=== PATIENT | female | born 1975 | race Caucasian/White ===

== ENCOUNTER 2020-06-11 17:11 | Observation (INO) | payer SELFPAY ==
[2020-06-11] VITALS (7 sets, daily range): BP systolic 88–108; BP diastolic 56–78
[~2020-06-11] VITALS: Ht 160 cm; Wt 51.1 kg
[2020-06-11] MEDS ORDERED: ZIPRASIDONE INJECTION 10 MG in WATER (STERILE) FOR INJECTION 1.2 ML IM ONE (17:30)
[2020-06-11 17:42] LABS: BASOPHILS % (AUTO) 0 % (0-10); EOSINOPHILS # (AUTO) 0.1 10^3/uL (0.0-0.3); EOSINOPHILS % (AUTO) 1 % (0-10); HEMATOCRIT 40 % (35-52); HEMOGLOBIN 13.7 G/DL (11.5-16.0); LYMPHOCYTES # (AUTO) 2.6 X 10^3 (1.0-4.0); LYMPHOCYTES % (AUTO) 29 % (12-44); MEAN CORPUSCULAR HEMOGLOBIN 30 PG (25-34); MEAN CORPUSCULAR HGB CONC 34 G/DL (32-36); MEAN CORPUSCULAR VOLUME 86 FL (80-99); MEAN PLATELET VOLUME 10.7 FL (7.4-10.4); MONOCYTES # (AUTO) 0.6 X 10^3 (0.0-1.0); MONOCYTES % (AUTO) 7 % (0-12); NEUTROPHILS # (AUTO) 5.7 X 10^3 (1.8-7.8); NEUTROPHILS % (AUTO) 63 % (42-75); PLATELET COUNT 364 10^3/uL (130-400)
--- NOTE | 2020-06-11 17:49 | ED Psychosocial ---
General Chief Complaint: Substance Abuse Stated Complaint: OD Nursing Triage Note: PT TO ROOM 08 VIA EMS WITH C/O OD. 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 PT MAY HAVE TAKEN HEROINE, ADEROL, AND ALCOHOL FRESH FOODS TECHNICIAN. Source: EMS Exam Limitations: no limitations, clinical condition (JALEEL GARG MD) History of Present Illness Date Seen by Provider: Jun 11, 2020 Time Seen by Provider: 17:16 Initial Comments This 45-year-old woman presents to the emergency room via EMS due to overdose and combative behavior. Police were called by patient's significant other. She was belligerent and violent with police, requiring handcuffs. For her safety EMS administered 100 mg of ketamine IM. Patient reportedly used alcohol, marijuana, Adderall, and possibly heroin. EMS reports there was no evidence of Adderall ingestion such as a bottle or remaining pills. There is a limited history due to patient's mental state and lack of family contact information. Patient is rather sedated and not talking comprehensibly due to the Ketamine. (JALELE GARG MD) Allergies and Home Medications Allergies Coded Allergies: No Known Drug Allergies (Unverified , 06/11/20) Patient Home Medication List Home Medication List Reviewed: Yes (JALEEL GARG MD) Review of Systems Constitutional: see HPI EENTM: no symptoms reported Respiratory: no symptoms reported Cardiovascular: no symptoms reported Gastrointestinal: no symptoms reported Genitourinary: no symptoms reported : No Musculoskeletal: no symptoms reported Skin: other (minor abrasions on the wrist from handcuffs) Psychiatric/Neurological: See HPI (JALEEL GARG MD) Past Pipragw-Eirdpv-Wgqnnr Hx Past Med/Social Hx: Reviewed Nursing Past Med/Soc Hx (JALEEL GARG MD) Patient Social History Alcohol Use: Regular Use Recreational Drug Use: Yes Smoking Status: Current Everyday Smoker Type Used: Cigarettes 2nd Hand Smoke Exposure: Yes Recent Foreign Travel: No Contact w/Someone Who Travel: No Recent Infectious Disease Expo: No Physical Abuse: No Sexual Abuse: No Mistreated: No Fear: No (JALEEL GARG MD) Past Medical History Surgeries: No (history not available) Respiratory: No (history not available) Cardiac: No (history not available) Neurological: No (history not available) : No (history not available) Genitourinary: No (history not available) Gastrointestinal: No (history not available) Musculoskeletal: No (history not available) Endocrine: No (history not available) HEENT: No (history not available) Cancer: No (history not available) Psychosocial: No (history not available) (JALEEL GARG MD) Physical Exam Vital Signs - First Documented 06/11/20 17:17 Temp 36.4 Pulse 84 Resp 17 B/P (MAP) 126/80 (95) O2 Delivery Room Air (AKANKSHA,EMETERIO K DO) Capillary Refill : Less Than 3 Seconds (JALEEL GARG MD) Height, Weight, BMI Height: '" Weight: lbs. oz. 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 noted because of ketamine) HEENT: normal ENT inspection, other (thick secretions on mucous membranes) Neck: normal inspection Respiratory: lungs clear, normal breath sounds, no respiratory distress, no accessory muscle use Cardiovascular: regular rate, rhythm, no edema, no murmur Gastrointestinal: normal bowel sounds, soft; No distended Extremities: normal inspection, no pedal edema, other (minor abrasions on the left wrist due to handcuffs) Neurologic/Psychiatric: other (moves all 4 extremities, agitated but was 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 MACHINE OPERATOR depression from ketamine) Appearance/Memory: disheveled Behavior/Eye Contact: other (sluggish incomprehensible speech) Thoughts/Hallucinations: other (hallucinations were reported by EMS) Skin: normal color, warm/dry (JALEEL GARG MD) Progress/Results/Core Measures Results/Orders Lab Results Laboratory Tests Test 06/11/20 17:20 06/11/20 18:18 Range/Units White Blood Count 9.0 4.3-11.0 10^3/uL Red Blood Count 4.65 4.35-5.85 10^6/uL Hemoglobin 13.7 11.5-16.0 G/DL Hematocrit 40 35-52 % Mean Corpuscular Volume 86 80-99 FL Mean Corpuscular Hemoglobin 30 25-34 PG Mean Corpuscular Hemoglobin Concent 34 32-36 G/DL Red Cell Distribution Width 14.0 10.0-14.5 % Platelet Count 364 130-400 10^3/uL Mean Platelet Volume 10.7 H 7.4-10.4 FL Neutrophils (%) (Auto) 63 42-75 % Lymphocytes (%) (Auto) 29 12-44 % Monocytes (%) (Auto) 7 0-12 % Eosinophils (%) (Auto) 1 0-10 % Basophils (%) (Auto) 0 0-10 % Neutrophils # (Auto) 5.7 1.8-7.8 X 10^3 Lymphocytes # (Auto) 2.6 1.0-4.0 X 10^3 Monocytes # (Auto) 0.6 0.0-1.0 X 10^3 Eosinophils # (Auto) 0.1 0.0-0.3 10^3/uL Basophils # (Auto) 0.0 0.0-0.1 10^3/uL Sodium Level 136 135-145 MMOL/L Potassium Level 4.2 3.6-5.0 MMOL/L Chloride Level 104 98-107 MMOL/L Carbon Dioxide Level 19 L 21-32 MMOL/L Anion Gap 13 5-14 MMOL/L Blood Urea Nitrogen 8 7-18 MG/DL Creatinine 0.79 0.60-1.30 MG/DL Estimat Glomerular Filtration Rate > 60 BUN/Creatinine Ratio 10 Glucose Level 145 H 70-105 MG/DL Calcium Level 9.0 8.5-10.1 MG/DL Corrected Calcium 8.7 8.5-10.1 MG/DL Total Bilirubin 0.4 0.1-1.0 MG/DL Aspartate Amino Transf (AST/SGOT) 24 5-34 U/L Alanine Aminotransferase (ALT/SGPT) 10 0-55 U/L Alkaline Phosphatase 52 40-136 U/L Total Creatine Kinase 84 29-168 U/L Total Protein 8.3 H 6.4-8.2 GM/DL Albumin 4.4 3.2-4.5 GM/DL TSH [place] Testing 1.02 0.35-4.94 UIU/ML Serum Test, Qualitative NEGATIVE NEGATIVE Salicylates Level < 5.0 L 5.0-20.0 MG/DL Acetaminophen Level < 10 L 10-30 UG/ML Serum Alcohol 246 H <10 MG/DL Urine Color YELLOW Urine Clarity CLEAR Urine pH 6.0 5-9 Urine Specific Morris <=1.005 1.016-1.022 Urine Protein NEGATIVE NEGATIVE Urine Glucose (UA) NEGATIVE NEGATIVE Urine Ketones NEGATIVE NEGATIVE Urine Nitrite NEGATIVE NEGATIVE Urine Bilirubin NEGATIVE NEGATIVE Urine Urobilinogen 0.2 < = 1.0 MG/DL Urine Leukocyte Esterase NEGATIVE NEGATIVE Urine RBC (Auto) NEGATIVE NEGATIVE Urine RBC 0-2 /HPF Urine WBC NONE /HPF Urine Squamous Epithelial Cells 0-2 /HPF Urine Crystals NONE /LPF Urine Bacteria NEGATIVE /HPF Urine Casts NONE /LPF Urine Mucus NEGATIVE /LPF Urine Culture Indicated NO Urine Opiates Screen NEGATIVE NEGATIVE Urine Oxycodone Screen NEGATIVE NEGATIVE Urine Methadone Screen NEGATIVE NEGATIVE Urine Propoxyphene Screen NEGATIVE NEGATIVE Urine Barbiturates Screen NEGATIVE NEGATIVE Ur Tricyclic Antidepressants Screen NEGATIVE NEGATIVE Urine Phencyclidine Screen NEGATIVE NEGATIVE Urine Amphetamines Screen POSITIVE H NEGATIVE Urine Methamphetamines Screen NEGATIVE NEGATIVE Urine Benzodiazepines Screen NEGATIVE NEGATIVE Urine Cocaine Screen NEGATIVE NEGATIVE Urine Cannabinoids Screen POSITIVE H NEGATIVE (EMETERIO PEREZ DO) My Orders Orders - EMETERIO PEREZ DO Catheter(Urinary) Insert & Ass 0315 (06/11/20 17:57) Ed Iv/Invasive Line Start (06/11/20 17:57) Lactated Ringers (Lr 1000 Ml Iv Solution (06/11/20 17:57) Lorazepam Injection (Ativan Injection) (06/11/20 19:00) Diphenhydramine Injection (Benadryl Inje (06/11/20 19:00) Haloperidol Injection (Haldol Injectio (06/11/20 19:00) (EMETERIO PEREZ DO) Medications Given in ED Current Medications Medications Dose Ordered Sig/Hemalatha Route Start Time Stop Time Status Last Admin Dose Admin Lactated Ringer's 1,000 ml @ 0 mls/hr Q0M ONCE IV 06/11/20 17:57 06/11/20 17:58 DC 06/11/20 18:17 999 MLS/HR (EMETERIO PEREZ DO) Vital Signs/I&O 06/11/20 17:17 Temp 36.4 Pulse 84 Resp 17 B/P (MAP) 126/80 (95) O2 Delivery Room Air (EMETERIO PEREZ DO) Blood Pressure Mean: 95 Progress Progress Note : Time: 17:58 Progress Note Patient was seen and examined upon arrival. 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 No further medications were required to sedate her. A liter of IV fluid is running as initiated by EMS. She is now sleeping and labs are pending. Vital signs are stable and within normal limits. Care of this patient is going to be transitioned to Dr. Perez. His (JALEEL GARG MD) Progress Note : Progress Note 1809--PT WOKE AND BECAME VERY COMBATIVE ON TACTILE STIMULATION AND REQUIRED MULTIPLE STAFF TO RESTRAIN FOR CATHETER PLACEMENT--PT WITH INCOHERENT AND SLURRED SPEECH. PT QUICKLY BACK TO SLEEP AFTER CATHETER PLACED. 1854--PT NOW SUDDENLY AWAKE, AGITATED/HYSTERICAL, COMBATIVE, TRYING TO GET OUT OF BED, THRASHING ALL OVER, NON-SENSICAL SPEECH, UNABLE TO FOLLOW COMMANDS. GIVEN BENADRYL, HALDOL, ATIVAN WITH IMPROVEMENT. NO DETERIORATION IN PT'S CONDITION DURING ER STAY VITALS STABLE. (EMETERIO PEREZ DO) Initial ECG Impression Date: Jun 11, 2020 Initial ECG Impression Time: 19:09 Initial ECG Rate: 87 Initial ECG Rhythm: Normal Sinus Initial ECG Comparisson: No Previous ECG Available (EMETERIO PEREZ DO) Departure Communication (Admissions) 1842--SPOKE WITH DR. CUNNINGHAM, HOSPITALIST, ACCEPTS PT FOR ADMIT 1929--DR. CUNNINGHAM HER TO SEE PT (EMETERIO PEREZ DO) Impression Primary Impression: Agitation Additional Impressions: Polysubstance abuse Alcohol intoxication Psychosis Disposition: ADMITTED INPATIENT Condition: Stable Admissions Decision to Admit Reason: Admit from ER (General) Decision to Admit/Date: Jun 11, 2020 Time/Decision to Admit Time: 18:45 (EMETERIO PEREZ DO) Departure-Patient Inst. Referrals: UNKNOWN (PCP/Family) Primary Care Physician Patient Instructions: ALCOHOL AND SUBSTANCE ABUSE JALEEL GARG MD Jun 11, 2020 17:49 EMETERIO PEREZ DO Jun 11, 2020 18:07
[2020-06-11 17:55] LABS: CHLORIDE 104 MMOL/L (98-107); POTASSIUM 4.2 MMOL/L (3.6-5.0); SODIUM 136 MMOL/L (135-145)
[2020-06-11 17:56] LABS: ALBUMIN 4.4 GM/DL (3.2-4.5)
[2020-06-11] MEDS ORDERED: LACTATED RINGERS 1,000 ML IV ONE (17:57)
[2020-06-11 17:58] LABS: GLUCOSE 145 MG/DL (70-105)
[2020-06-11 17:59] LABS: CARBON DIOXIDE 19 MMOL/L (21-32); TOTAL PROTEIN 8.3 GM/DL (6.4-8.2)
[2020-06-11 18:00] LABS: BILIRUBIN,TOTAL 0.4 MG/DL (0.1-1.0)
[2020-06-11 18:02] LABS: ALKALINE PHOSPHATASE 52 U/L (40-136); CREATININE SERUM 0.79 MG/DL (0.60-1.30); GFR ESTIMATED > 60
[2020-06-11 18:03] LABS: BUN/CREATININE RATIO 10
[2020-06-11 18:05] LABS: ALANINE AMINOTRANSFERASE 10 U/L (0-55); CREATINE KINASE 84 U/L (29-168); SALICYLATE < 5.0 MG/DL (5.0-20.0)
[2020-06-11 18:21] LABS: ACETAMINOPHEN < 10 UG/ML (10-30)
[2020-06-11 18:23] LABS: BILIRUBIN,URINE NEGATIVE (NEGATIVE); CLARITY,URINE CLEAR; COLOR,URINE YELLOW; GLUCOSE, URINE (UA) NEGATIVE (NEGATIVE); KETONES,URINE NEGATIVE (NEGATIVE); LEUKOCYTE ESTERASE ,URINE NEGATIVE (NEGATIVE); NITRITE,URINE NEGATIVE (NEGATIVE); PROTEIN,URINE NEGATIVE (NEGATIVE)
[2020-06-11 18:25] LABS: TSH (THYROID ANALYZER) 1.02 UIU/ML (0.35-4.94)
[2020-06-11 18:31] LABS: BACTERIA,URINE NEGATIVE /HPF; RBC,URINE 0-2 /HPF; SQUAMOUS EPITHELIAL CELL,UR 0-2 /HPF
[2020-06-11 18:37] LABS: BENZODIAZEPINES SCREEN URINE NEGATIVE (NEGATIVE)
[2020-06-11 18:38] LABS: AMPHETAMINE SCREEN, URINE POSITIVE (NEGATIVE); BARBITURATE SCREEN URINE NEGATIVE (NEGATIVE); CANNABINOID SCREEN, URINE POSITIVE (NEGATIVE); COCAINE SCREEN URINE NEGATIVE (NEGATIVE); METHADONE STAT NEGATIVE (NEGATIVE); METHAMPHETAMINE SCREEN URINE S NEGATIVE (NEGATIVE); OPIATE SCREEN URINE NEGATIVE (NEGATIVE); OXYCODONE STAT NEGATIVE (NEGATIVE); PROPOXYPHENE STAT NEGATIVE (NEGATIVE); TRICYCLIC ANTIDEPRESSANTS SCRE NEGATIVE (NEGATIVE)
[2020-06-11] MEDS ORDERED: LORazepam INJ 2 MG/ML (ATIVAN) VIAL IVP ONE (19:00)
[2020-06-11] MEDS ORDERED: diphenhydrAMINE 50 MG/ML INJ (BENADRYL) IVP ONE (19:00)
[2020-06-11] MEDS ORDERED: HALOPERIDOL 5 MG/ML (HALDOL) VIAL IV ONE (19:00)
--- NOTE | 2020-06-11 19:46 | History & Physical-Hospitalist ---
History of Present Illness HPI/Chief Complaint Pt is a 45yoCF with a history of illicit drug use who presented to the ER via EMS due to psychosis. At the time of my exam she is quite sedated and only grimaces to loud noises and physicial stimuli. All history is obtained from that chart. Date Seen 06/11/20 Time Seen by a Provider: 19:45 Attending Physician PCP Unknown Referring Physician Date of Admission Home Medications & Allergies Home Medications Reviewed patient Home Medication Reconciliation performed by pharmacy medication reconciliations weight reducing technician and/or nursing. Patients Allergies have been reviewed. Allergies Allergies Coded Allergies No Known Drug Allergies (Unverified06/11/20) Past Jusnsnw-Tasmeh-Wwqzvb Hx Past Med/Social Hx: Reviewed Nursing Past Med/Soc Hx Patient Social History Alcohol Use: Regular Use Recreational Drug Use: Yes Smoking Status: Current Everyday Smoker Type Used: Cigarettes 2nd Hand Smoke Exposure: Yes Recent Foreign Travel: No Contact w/other who traveled: No Recent Infectious Disease Expo: No Past Medical History : No (history not available) Physical Exam Physical Exam Vital Signs Vital Signs - First Documented 06/11/20 06/11/20 17:17 20:19 Temp 36.4 Pulse 84 Resp 17 B/P (MAP) 126/80 (95) Pulse Ox 98 O2 Delivery Room Air Capillary Refill : Less Than 3 Seconds Height, Weight, BMI Height: '" Weight: lbs. oz. kg; 18.00 BMI Method: Results Results/Procedures Labs Laboratory Tests 06/12/20 02:50 Patient resulted labs reviewed. DALE CUNNINGHAM MD Jun 11, 2020 19:46
--- NOTE | 2020-06-11 20:07 | History & Physical-Hospitalist ---
History of Present Illness HPI/Chief Complaint Pt is a 45yoCF with a history of illicit drug use who presented to the ER via EMS due to psychosis. At the time of my exam she is quite sedated and only grimaces to loud noises and physical stimuli. All history is obtained from that chart. Apparently she was belligerent and violent with police and EMS was called. She was given mg IM Ketamine for sedation which was briefly successful at calming her. She reported using alcohol, THC, Adderall, and heroin. She briefly aroused in the ER but was very agitated and combative. She was given Haldol and Ativan in the ER. This was just prior to my exam accounting for her depressed mental state. Date Seen 06/11/20 Time Seen by a Provider: 20:01 Attending Physician Dale Oliveros MD PCP No,Local Physician Referring Physician Date of Admission Jun 11, 2020 at 18:45 Home Medications & Allergies Home Medications Reviewed patient Home Medication Reconciliation performed by pharmacy medication reconciliations pest technician and/or nursing. Patients Allergies have been reviewed. Allergies Allergies Coded Allergies No Known Drug Allergies (Unverified06/11/20) Past Mkumhbz-Vkzglf-Bnpnwz Hx Past Med/Social Hx: Reviewed Nursing Past Med/Soc Hx Patient Social History Alcohol Use: Regular Use Recreational Drug Use: Yes Smoking Status: Current Everyday Smoker Type Used: Cigarettes 2nd Hand Smoke Exposure: Yes Recent Foreign Travel: No Contact w/other who traveled: No Recent Infectious Disease Expo: No Past Medical History : No (history not available) Family History Reviewed Nursing Family Hx Unable to obtain history Review of Systems ROS-Unable to Obtain: sedated Constitutional: see HPI Physical Exam Physical Exam Vital Signs Vital Signs - First Documented 06/11/20 17:17 Temp 36.4 Pulse 84 Resp 17 B/P (MAP) 126/80 (95) O2 Delivery Room Air Capillary Refill : Less Than 3 Seconds Height, Weight, BMI Height: '" Weight: lbs. oz. kg; 18.00 BMI Method: General Appearance: Other (thin young female lying in ER gurney sleeping soundly, NAD) HEENT: Moist Mucous Membranes, Other (pinpoint pupils) Neck: Normal Inspection, Supple Respiratory: Lungs Clear, No Accessory Muscle Use, No Respiratory Distress Cardiovascular: Regular Rate, Rhythm, No Murmur Gastrointestinal: Normal Bowel Sounds, Non Tender, Soft Extremity: No Calf Tenderness, No Pedal Edema Neurologic/Psychiatric: Other (sleeping soundly, aroused to sternal rub but only with groaning then returned to sleep) Skin: Normal Color, Warm/Dry Results Results/Procedures Labs Laboratory Tests 06/11/20 17:20 Patient resulted labs reviewed. Assessment/Plan Admission Diagnosis Drug induced psychosis Admission Status: Observation Assessment and Plan Drug induced psychosis Alcohol intoxication Illicit drug use UDS consistent with THC and amphetamine use - No adderall rx in refill history Admit for observation due to sedation Will discuss drug use when more alert [facility] protocol Hyperglycemia Trend DVT ppx: Lovenox Diagnosis/Problems Diagnosis/Problems (1) Hyperglycemia Status: Acute (2) Polysubstance abuse Status: Acute (3) Agitation Status: Acute (4) Psychosis Status: Acute (5) Alcohol intoxication Status: Acute DALE OLIVEROS MD Jun 11, 2020 20:07
[2020-06-11] MEDS ORDERED: D5 1/2 NS W/KCL 20 MEQ/L 1,000 ML IV ONE (20:28)
--- NOTE | 2020-06-11 20:34 | NUR ---
PT ADMITTED TO ICU AT THIS TIME. PT UNABLE TO ANSWER ADMISSION QUESTIONS APPROPRIATELY. ADMISSION QUESTIONS ANSWERED TO THE BEST OF THIS RNS ABILITIES. THIS RN UNABLE TO GET EMERGENCY CONTACT INFORMATION OR SET UP A PASSWORD AT THIS TIME. WILL TRY AGAIN WHEN PT IS MORE ALERT.
[2020-06-11] MEDS ORDERED: ENOXAPARIN 40 MG/0.4 ML (LOVENOX) SYR ONE (21:30)
[2020-06-11] MEDS ORDERED: ENOXAPARIN 40 MG/0.4 ML (LOVENOX) SYR SC SCH (21:30)
[2020-06-11 21:33] LABS: INR 1.1 (0.8-1.4); PROTHROMBIN TIME PATIENT 14.5 SEC (12.2-14.7)
[2020-06-11] MEDS ORDERED: 1/2 NS IV SOLUTION 1,000 ML IV PRN (22:19)
[2020-06-11] MEDS ORDERED: D5 1/2 NS 1000 ML IV SOLUTION 1,000 ML IV PRN (22:30)
[2020-06-11] MEDS ORDERED: ONDANSETRON 4 MG (ZOFRAN) ORAL DISSOLVE TAB SL PRN (22:30)
[2020-06-11] MEDS ORDERED: SENNA W/DOCUSATE (SENOKOT S) TABLET PO PRN (22:30)
[2020-06-11] MEDS ORDERED: ANTACID SUSP 30 ML UDC (MYLANTA) PO PRN (22:30)
[2020-06-11] MEDS ORDERED: ONDANSETRON 4 MG/2 ML (SDV) Z0FRAN IV PRN (22:30)
[2020-06-11] MEDS ORDERED: LORazepam 1 MG (ATIVAN) TAB PO PRN (22:30)
[2020-06-11] MEDS ORDERED: LORazepam INJ 2 MG/ML (ATIVAN) VIAL IV PRN (22:30)
[2020-06-11] MEDS ORDERED: LORazepam INJ 2 MG/ML (ATIVAN) VIAL IM/IV PRN (22:30)
[2020-06-11] MEDS: D5 1/2 NS W/KCL 20 MEQ/L 1,000 ML IV SCH (22:34)
[2020-06-12] VITALS (16 sets, daily range): BP systolic 95–125; BP diastolic 65–84
[2020-06-12] MEDS: D5 1/2 NS W/KCL 20 MEQ/L 1,000 ML IV SCH ×2 (02:51→09:39)
[2020-06-12 04:06] LABS: BASOPHILS % (AUTO) 0 % (0-10); EOSINOPHILS # (AUTO) 0.1 10^3/uL (0.0-0.3); EOSINOPHILS % (AUTO) 2 % (0-10); HEMATOCRIT 34 % (35-52); HEMOGLOBIN 11.5 G/DL (11.5-16.0); LYMPHOCYTES # (AUTO) 2.4 X 10^3 (1.0-4.0); LYMPHOCYTES % (AUTO) 41 % (12-44); MEAN CORPUSCULAR HEMOGLOBIN 30 PG (25-34); MEAN CORPUSCULAR HGB CONC 34 G/DL (32-36); MEAN CORPUSCULAR VOLUME 87 FL (80-99); MEAN PLATELET VOLUME 10.9 FL (7.4-10.4); MONOCYTES # (AUTO) 0.6 X 10^3 (0.0-1.0); MONOCYTES % (AUTO) 11 % (0-12); NEUTROPHILS # (AUTO) 2.7 X 10^3 (1.8-7.8); NEUTROPHILS % (AUTO) 46 % (42-75); PLATELET COUNT 265 10^3/uL (130-400); WHITE BLOOD COUNT 5.9 10^3/uL (4.3-11.0)
[2020-06-12 04:19] LABS: ALBUMIN 3.4 GM/DL (3.2-4.5); CHLORIDE 110 MMOL/L (98-107); POTASSIUM 3.8 MMOL/L (3.6-5.0); SODIUM 140 MMOL/L (135-145)
[2020-06-12 04:21] LABS: CALCIUM 7.8 MG/DL (8.5-10.1)
[2020-06-12 04:22] LABS: GLUCOSE 94 MG/DL (70-105); TOTAL PROTEIN 5.9 GM/DL (6.4-8.2)
[2020-06-12 04:23] LABS: CARBON DIOXIDE 21 MMOL/L (21-32)
[2020-06-12 04:24] LABS: BILIRUBIN,TOTAL 0.4 MG/DL (0.1-1.0)
[2020-06-12 04:25] LABS: ALKALINE PHOSPHATASE 40 U/L (40-136); PHOSPHORUS 2.5 MG/DL (2.3-4.7)
[2020-06-12 04:26] LABS: CREATININE SERUM 0.61 MG/DL (0.60-1.30); GFR ESTIMATED > 60
[2020-06-12 04:27] LABS: BUN/CREATININE RATIO 11
[2020-06-12 04:28] LABS: ALANINE AMINOTRANSFERASE 8 U/L (0-55); MAGNESIUM 1.7 MG/DL (1.6-2.4)
[2020-06-12] MEDS: LORazepam INJ 2 MG/ML (ATIVAN) VIAL IV PRN ×2 (09:39→10:46)
--- NOTE | 2020-06-12 09:47 | Discharge Inst-Simple/Standard ---
Discharge Inst-Standard Discharge Medications New, Converted or Re-Newed RX: Transmitted to Pharmacy Patient Instructions/Follow Up Plan of Care/Instructions/FU: Please stop using methamphetamine. Please follow up with your primary care doctor to follow up with your hospital stay. Activity as Tolerated: Yes Discharge Diet: No Restrictions Return to The Hospital For: Chest pain, shortness of breath, confusion, fever, abdominal pain, if you feel like you are getting worse. DALE CUNNINGHAM MD Jun 12, 2020 09:47
--- NOTE | 2020-06-12 09:51 | Discharge Summary ---
Diagnosis/Chief Complaint Date of Admission Jun 11, 2020 at 18:45 Date of Discharge Discharge Date: Jun 12, 2020 Admission Diagnosis Drug induced psychosis Primary Care No,Local Physician Discharge Diagnosis (1) Hyperglycemia Status: Acute (2) Polysubstance abuse Status: Acute (3) Agitation Status: Acute (4) Psychosis Status: Acute (5) Alcohol intoxication Status: Acute Discharge Summary Discharge Physical Exam Allergies: Coded Allergies: No Known Drug Allergies (Unverified , 06/11/20) Vitals & I&Os Vital Signs Date Time Temp Pulse Resp B/P (MAP) Pulse Ox O2 Delivery O2 Flow Rate FiO2 06/12/20 14:00 66 13 118/78 (91) 98 Room Air 06/12/20 12:03 36.5 General Appearance: No Apparent Distress, WD/WN Cardiovascular: Regular Rate, Rhythm, No Murmur Neurologic/Psychiatric: Alert, Oriented x3 Hospital Course Pt was admitted due to acute psychosis from illicit drug use. She was observed overnight and did well. She woke up in the morning and was oriented to person and place but did not recall last evenings events. She was discharged home in stable condition to follow up with a primary care doctor. Cessation of illicit drug use was recommended. Labs (last 24 hrs) Laboratory Tests 06/11/20 21:04: Prothrombin Time 14.5, INR Comment 1.1, Activated Partial Thromboplast Time 29 06/12/20 02:50: White Blood Count 5.9, Red Blood Count 3.89L, Hemoglobin 11.5, Hematocrit 34L, Mean Corpuscular Volume 87, Mean Corpuscular Hemoglobin 30, Mean Corpuscular Hemoglobin Concent 34, Red Cell Distribution Width 13.9, Platelet Count 265, Mean Platelet Volume 10.9H, Neutrophils (%) (Auto) 46, Lymphocytes (%) (Auto) 41, Monocytes (%) (Auto) 11, Eosinophils (%) (Auto) 2, Basophils (%) (Auto) 0, Neutrophils # (Auto) 2.7, Lymphocytes # (Auto) 2.4, Monocytes # (Auto) 0.6, Eosinophils # (Auto) 0.1, Basophils # (Auto) 0.0, Sodium Level 140, Potassium L evel 3.8, Chloride Level 110H, Carbon Dioxide Level 21, Anion Gap 9, Blood Urea Nitrogen 7, Creatinine 0.61, Estimat Glomerular Filtration Rate > 60, BUN/Creatinine Ratio 11, Glucose Level 94, Calcium Level 7.8L, Corrected Calcium 8.3L, Phosphorus Level 2.5, Magnesium Level 1.7, Total Bilirubin 0.4, Aspartate Amino Transf (AST/SGOT) 13, Alanine Aminotransferase (ALT/SGPT) 8, Alkaline Phosphatase 40, Total Protein 5.9L, Albumin 3.4 Patient resulted labs reviewed. Pending Labs Discussion & Recommendations Discharge Planning: <30 minutes discharge planning Discharge Home Medications: Active Scripts Active No Active Prescriptions or Reported Medications Instructions to patient/family Please see electronic discharge instructions given to patient. Clinical Quality Measures DVT/VTE Risk/Contraindication: Risk Factor Score Per Nursin RFS Level Per Nursing on Admit: 4+=Very High DALE CUNNINGHAM MD Jun 12, 2020 09:51
[2020-06-12] MEDS ORDERED: THIAMINE INJECTION 100 MG, FOLIC ACID INJECTION 1 MG, MAGNESIUM SULFATE 2 GM, VITAMIN M... IV SCH ×5 (10:00)
[2020-06-12] MEDS ORDERED: THIAMINE INJECTION 100 MG, FOLIC ACID INJECTION 1 MG, VITAMIN MULTI INJECTION 10 ML, MA... IV SCH ×5 (10:00)
--- NOTE | 2020-06-12 15:09 | NUR ---
PT WANTS TO D/C TODAY JOSÉ. D/C PAPERWORK SIGNED BY PT AND RN. PT TRYING TO GET A HOLD OF FRIEND TO COME GET HER. IV AND APPIAH CATH HAVE BEEN DISCONTINUED. SHE IS LAYING IN BED AT THIS TIME. RN WILL CONTINUE TO MONITOR CLOSELY AND ASSIST WITH D/C
--- NOTE | 2020-06-12 16:21 | NUR ---
THIS RN DISCHARGED PT BY W/C TO ER DOOR WHERE A MAN WAS THERE TO PICK HER UP IN PERSONAL VEHICLE
[2020-06-12] MEDS ORDERED: ENOXAPARIN 30 MG/0.3 ML (LOVENOX) SYR SC SCH (21:00)
== END 2020-06-12 16:00 | disposition home or self-care (01) ==
LOC: ER 17:16 → ICU 18:45
PROVIDERS: ADMIT Family Medicine; ATTEND Family Medicine
DX: F23 Brief psychotic disorder (principal); E72.51 Non-ketotic hyperglycinemia; F19.129 Other psychoactive substance abuse with intoxication, unspecified; F10.129 Alcohol abuse with intoxication, unspecified; R45.1 Restlessness and agitation; F17.210 Nicotine dependence, cigarettes, uncomplicated; Z79.899 Other long term (current) drug therapy
CPT/HCPCS: 80053 ×2; 80306; 81000; 82550; 83735; 84100; 84443; 84703; 85025 ×2; 85610; 85730; 87081; 93041; 99285; G0480 ×3; 36415; 80320; 80329; 93005; G0378

== ENCOUNTER 2020-06-24 18:30 | Inpatient (IN) | payer OTHER ==
[~2020-06-24] VITALS: Ht 167.6 cm; Wt 55.0 kg
[2020-06-24] VITALS (13 sets, daily range): BP systolic 0–99; BP diastolic 0–80
[2020-06-24] MEDS ORDERED: 1/2 NS IV SOLUTION 1,000 ML IV PRN (18:42)
[2020-06-24] MEDS ORDERED: SENNA W/DOCUSATE (SENOKOT S) TABLET PO PRN (18:45)
[2020-06-24] MEDS ORDERED: D5 1/2 NS 1000 ML IV SOLUTION 1,000 ML IV PRN (18:45)
[2020-06-24] MEDS ORDERED: ANTACID SUSP 30 ML UDC (MYLANTA) PO PRN (18:45)
[2020-06-24] MEDS ORDERED: polyethylene glycoL POWDER 17 GM (MIRALAX) PACK PO PRN (18:45)
[2020-06-24] MEDS ORDERED: LORazepam INJ 2 MG/ML (ATIVAN) VIAL IM/IV PRN (18:45)
[2020-06-24] MEDS ORDERED: ONDANSETRON 4 MG (ZOFRAN) ORAL DISSOLVE TAB SL PRN (18:45)
[2020-06-24] MEDS ORDERED: LORazepam INJ 2 MG/ML (ATIVAN) VIAL IV PRN (18:45)
[2020-06-24] MEDS ORDERED: diphenhydrAMINE 25 MG TAB (BENADRYL) PO PRN (18:45)
--- NOTE | 2020-06-24 20:49 | NUR ---
EMILY MORALES admitted to room 414-1, with an admitting diagnosis of Alcohol withdrawl, on 06/24/20 from via strethcer, accompanied by EMS.EMILY MORALES introduced to surroundings, call light, bed controls, phone, TV, temperature control, lights, meal times, smoking policy, visitor policy, side rail policy, bathrooms and showers. Patient Rights given to patient in the handbook.
--- NOTE | 2020-06-24 20:52 | NUR ---
This RN assumed care for this patient as a direct admit at 2019. PT was introduced to surroundings and staff for the night. Pt is Pulling at IV line, crying, yelling for her mother, repeating she wants a drink of alcohol, and is only alert to name and touch. Otherwise, pt is unable to state where she's currentley at and i sincomprehensible at this time. PT's bed alarm set, call light within reach, and pt is in a room right near the nursing station. Bed is at lowest level possible, and side rails are padded and up X4. Will continue to monior pt status and provide care as ordered.
--- NOTE | 2020-06-24 21:27 | NUR ---
This RN called [employer] monitoring at 2100 and gave report to monitoring system via telephone to watch this pt for getting out of bed/fall risk, suicidal ideation, and alcohol withdrawl/seizure precautions. [employer] was set up and monitoring effectiveley. Will continue to monitor pt's status and [employer] has this RN's phone number to contact for any video monitoring needs.
[2020-06-24] MEDS: MELATONIN 3 MG TABLET PO PRN (23:42)
[2020-06-24] MEDS: ONDANSETRON 4 MG/2 ML (SDV) Z0FRAN IV PRN (23:48)
[2020-06-25] VITALS (7 sets, daily range): BP systolic 90–121; BP diastolic 60–78
[2020-06-25] MEDS: LORazepam 1 MG (ATIVAN) TAB PO PRN
[2020-06-25] MEDS: ACETAMINOPHEN 325 MG TABLET PO PRN ×3 (03:00→20:26)
[2020-06-25] MEDS ORDERED: PIPERACILLIN/TAZO 4.5 GM VIAL (ZOSYN) IV ONE (06:18)
[2020-06-25] MEDS: THIAMINE 100 MG (VITAMIN B-1) TAB PO SCH (06:18)
[2020-06-25] MEDS: MULTIVIT W/MINERALS TAB (THERAGRAN M) PO SCH (06:18)
[2020-06-25] MEDS: ONDANSETRON 4 MG/2 ML (SDV) Z0FRAN IV PRN (06:53)
[2020-06-25 07:19] LABS: BASOPHILS % (AUTO) 1 % (0-10); EOSINOPHILS # (AUTO) 0.1 10^3/uL (0.0-0.3); EOSINOPHILS % (AUTO) 2 % (0-10); HEMATOCRIT 33 % (35-52); HEMOGLOBIN 10.9 G/DL (11.5-16.0); LYMPHOCYTES % (AUTO) 37 % (12-44); MEAN CORPUSCULAR HEMOGLOBIN 30 PG (25-34); MEAN CORPUSCULAR HGB CONC 33 G/DL (32-36); MEAN CORPUSCULAR VOLUME 89 FL (80-99); MEAN PLATELET VOLUME 10.4 FL (7.4-10.4); MONOCYTES # (AUTO) 0.5 X 10^3 (0.0-1.0); MONOCYTES % (AUTO) 9 % (0-12); NEUTROPHILS # (AUTO) 2.8 X 10^3 (1.8-7.8); NEUTROPHILS % (AUTO) 52 % (42-75); PLATELET COUNT 257 10^3/uL (130-400); WHITE BLOOD COUNT 5.5 10^3/uL (4.3-11.0)
[2020-06-25 07:34] LABS: CHLORIDE 109 MMOL/L (98-107); POTASSIUM 4.1 MMOL/L (3.6-5.0); SODIUM 138 MMOL/L (135-145)
[2020-06-25 07:35] LABS: CALCIUM 7.8 MG/DL (8.5-10.1); GLUCOSE 93 MG/DL (70-105)
[2020-06-25 07:37] LABS: CARBON DIOXIDE 23 MMOL/L (21-32)
[2020-06-25 07:39] LABS: CREATININE SERUM 0.67 MG/DL (0.60-1.30); GFR ESTIMATED > 60; PHOSPHORUS 2.8 MG/DL (2.3-4.7)
[2020-06-25 07:40] LABS: BUN/CREATININE RATIO 13
[2020-06-25 07:42] LABS: MAGNESIUM 1.8 MG/DL (1.6-2.4)
[2020-06-25] MEDS: MAGNESIUM 1 GM/100 ML IVPB 100 ML IV SCH (08:18)
[2020-06-25] MEDS: POTASSIUM CL 10MEQ/50ML IVPB 50 ML IV SCH (08:18)
[2020-06-25] MEDS: FOLIC ACID 1 MG TAB PO SCH (08:19)
[2020-06-25] MEDS: MAGNESIUM OXIDE (MAG-OX)400 MG TAB PO SCH ×2 (08:19→17:05)
[2020-06-25] MEDS: KCL 20 MEQ TAB (K-DUR) PO SCH (08:19)
[2020-06-25] MEDS: THIAMINE INJECTION 100 MG, FOLIC ACID INJECTION 1 MG, MAGNESIUM SULFATE 2 GM, VITAMIN M... IV SCH ×15 (08:19→22:34)
[2020-06-25] MEDS: ENOXAPARIN 40 MG/0.4 ML (LOVENOX) SYR SC SCH (09:34)
--- NOTE | 2020-06-25 10:12 | NUR ---
CM/SS visited with the patient for social service consult. Plan[facility]. The patient reports that she was admitted to the hospital due to consumption of a high level of alcohol. She states that she has been admitted to the hospital x3 for alcohol use. The patient verbalized that it is starting to worry her because over the last two months her drinking has became more frequent. The patient reports that she does not drink everyday and she does not have a drink of choice. She states that she drank a 5th yesterday. The patient lives with her 25 year old daughter in [place], [place] the address is, [address] [place] [address]. She states that she does not have a car but has someone who will drive her if she needs to go somewhere. The patient is unemployed and and not receiving any assistance. She reports that she has [employer] insurance from [place] but has not gotten a new insurance yet. CODI/SS discussed different options for substance use treatment. She reports that in the past, she was able to detox at home and then do AA meetings. She reports that she hasn't seen any AA meetings in this area currently. CODI/SS discussed online AA meetings through [place]. The patient was provided information on [facility], [facility]/ [facility], and [facility] intensive Outpatient. She verbalized interest in [facility]. The patient asked about residential housing for recovering substance users. The [facility] in [place] is men only. The [facility] reports they have beds open and female houses. She states the patient will need a Covid negative test, an interview, and 100 dollar processing fee. CM/SS provided the patient will the information and number to call for interview. CM/SS notified physician. CM/SS will continue to follow.
[2020-06-25] MEDS ORDERED: MULT-1136 PO (11:41)
[2020-06-25] MEDS ORDERED: ACET-2267 PO (11:41)
[2020-06-25] MEDS ORDERED: BUPR8TAB SL ×2 (12:31)
--- NOTE | 2020-06-25 12:31 | NUR ---
SPOKE WITH THE PT AND CALLED [facility] TO COMPLETE THE MED REC [facility] HAS PT [facility]ISTED UNDER [facility] 06-07-2020 BUPRENORPHINE 8MG (SUBUTEX) #8 DIRECTIONS 1 TAB AM AND PM AND TAB HS OTC MEDS: MTV TYLENOL
--- NOTE | 2020-06-25 13:36 | History & Physical-Hospitalist ---
History of Present Illness HPI/Chief Complaint Mi Richey is a 45-year-old female with history of alcohol dependence who presented with acute alcohol intoxication monitoring for alcohol withdrawal. She initially presented to the [place] emergency room. She requested transfer to [facility]. Upon my examination, she says that she is feeling well. She wants to quit drinking alcohol. She did denies any nausea or vomiting. She denies any shakiness. She has no other complaints or concerns. 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 Source: patient Exam Limitations: no limitations Date Seen 06/25/20 Time Seen by a Provider: 10:00 Attending Physician Lyndsey Macedo MD PCP No,Local Physician Referring Physician Date of Admission Jun 24, 2020 at 20:19 Home Medications & Allergies Home Medications Reviewed patient Home Medication Reconciliation performed by pharmacy medication reconciliations broadcast maintenance technician and/or nursing. Patients Allergies have been reviewed. Allergies Allergies Coded Allergies Sulfa (Sulfonamide Antibiotics) (Verified Allergy, Unknown, Headache, 06/24/20) per discharge summary [facility] ketorolac (Verified Allergy, Unknown, shortnness of Breath/Wheezing, 06/24/20) per discharge summary [facility] metoclopramide (Verified Allergy, Unknown, makes legs feel like they are crawling, 06/24/20) per discharge summary [facility] prochlorperazine (Verified Allergy, Unknown, Makes legs feel like they are crawling, 06/24/20) per discharge summary [facility] clarithromycin (Verified Adverse Reaction, Intermediate, stomach pain, 06/24/20) per discharge summary [facility] Past Proipmp-Fzxkgi-Plbtyq Hx Past Med/Social Hx: Reviewed Nursing Past Med/Soc Hx Patient Social History Type Used: Cigarettes 2nd Hand Smoke Exposure: Yes Recent Foreign Travel: No Contact w/other who traveled: No Recent Infectious Disease Expo: No Family History Unable to obtain history Review of Systems Constitutional: no symptoms reported EENTM: no symptoms reported Respiratory: no symptoms reported Cardiovascular: no symptoms reported Gastrointestinal: no symptoms reported Genitourinary: no symptoms reported Musculoskeletal: no symptoms reported Skin: no symptoms reported Psychiatric/Neurological: No Symptoms Reported Physical Exam Physical Exam Vital Signs Vital Signs - First Documented 06/24/20 20:19 Temp 36.2 Pulse 76 Resp 19 B/P (MAP) 92/58 (69) Pulse Ox 98 O2 Delivery Room Air Capillary Refill : Less Than 3 Seconds Height, Weight, BMI Height: '" Weight: lbs. oz. kg; 19.58 BMI Method: General Appearance: No Apparent Distress, Thin HEENT: PERRL/EOMI, Pharynx Normal Neck: Normal Inspection, Supple Respiratory: Lungs Clear, Normal Breath Sounds, No Respiratory Distress Cardiovascular: Regular Rate, Rhythm, No Edema, No Murmur Gastrointestinal: Normal Bowel Sounds, Non Tender, Soft Extremity: Normal Inspection, Non Tender, No Pedal Edema Neurologic/Psychiatric: Alert, Oriented x3, No Motor/Sensory Deficits, Normal Mood/Affect Skin: Normal Color, Warm/Dry Results Results/Procedures Labs Laboratory Tests 06/25/20 07:10 Patient resulted labs reviewed. Assessment/Plan Admission Diagnosis alcohol dependence with intoxication and withdrawal Admission Status: Inpatient Order (span 2 midnights) Reason for Inpatient Admission: monitoring for alcohol withdrawal Assessment and Plan EtOH dependence EtOH intoxication EtOH withdrawal transferred from [facility] for alcohol withdrawal alcohol level 190 CIWA protocol ordered Banana bag Vitamins daily social work consulted, appreciate assistance planning for discharge to [facility] in [place] pending negative COVID test DVT prophylaxis: Lovenox Diagnosis/Problems Diagnosis/Problems (1) Alcohol dependence with withdrawal Status: Acute (2) Alcohol intoxication Status: Acute Clinical Quality Measures DVT/VTE Risk/Contraindication: Risk Factor Score Per Nursin RFS Level Per Nursing on Admit: 1=Low/No VTE PPX LYNDSEY MACEDO MD Jun 25, 2020 13:36
--- NOTE | 2020-06-25 14:12 | NUR ---
BANANA BAG DAILY NOT TO BE CONTINUE ORDERED.
--- NOTE | 2020-06-25 14:42 | NUR ---
covid-199 test obtained by this RN, right nare used to obtain this test.
[2020-06-25] MEDS: NON-FORMULARY MEDICATION 1 EA EA (Buprenorphine HCl 8 MG) SL SCH (20:26)
[2020-06-25] MEDS: MELATONIN 3 MG TABLET PO PRN (20:26)
[2020-06-25] MEDS ORDERED: BUPRENORPHINE HCL 4 MG SL SCH (21:00)
[2020-06-26] MEDS: LORazepam 1 MG (ATIVAN) TAB PO PRN ×3 (03:36→16:22)
[2020-06-26 03:38] VITALS: BP 118/78
[2020-06-26] MEDS: THIAMINE 100 MG (VITAMIN B-1) TAB PO SCH (06:00)
[2020-06-26] MEDS: MULTIVIT W/MINERALS TAB (THERAGRAN M) PO SCH (06:00)
[2020-06-26 07:31] LABS: ALBUMIN 3.3 GM/DL (3.2-4.5); CHLORIDE 108 MMOL/L (98-107); POTASSIUM 4.2 MMOL/L (3.6-5.0); SODIUM 137 MMOL/L (135-145)
[2020-06-26 07:32] LABS: CALCIUM 7.9 MG/DL (8.5-10.1)
[2020-06-26 07:33] LABS: GLUCOSE 92 MG/DL (70-105)
[2020-06-26 07:34] LABS: TOTAL PROTEIN 5.5 GM/DL (6.4-8.2)
[2020-06-26 07:35] LABS: BILIRUBIN,TOTAL 0.5 MG/DL (0.1-1.0); CARBON DIOXIDE 23 MMOL/L (21-32)
[2020-06-26 07:37] LABS: ALKALINE PHOSPHATASE 34 U/L (40-136); CREATININE SERUM 0.66 MG/DL (0.60-1.30); GFR ESTIMATED > 60
[2020-06-26 07:38] LABS: BUN/CREATININE RATIO 12
[2020-06-26 07:40] LABS: ALANINE AMINOTRANSFERASE 9 U/L (0-55)
[2020-06-26] MEDS: KCL 20 MEQ TAB (K-DUR) PO SCH (07:53)
[2020-06-26] MEDS: POTASSIUM CL 10MEQ/50ML IVPB 50 ML IV SCH (07:53)
[2020-06-26] MEDS: MAGNESIUM 1 GM/100 ML IVPB 100 ML IV SCH (07:53)
[2020-06-26 08:00] VITALS: BP 118/76
[2020-06-26] MEDS: ACETAMINOPHEN 325 MG TABLET PO PRN (09:20)
[2020-06-26] MEDS: FOLIC ACID 1 MG TAB PO SCH (09:20)
[2020-06-26] MEDS: ENOXAPARIN 40 MG/0.4 ML (LOVENOX) SYR SC SCH (09:20)
[2020-06-26] MEDS: MAGNESIUM OXIDE (MAG-OX)400 MG TAB PO SCH (09:20)
[2020-06-26] MEDS: NON-FORMULARY MEDICATION 1 EA EA (Buprenorphine HCl 8 MG) SL SCH (09:21)
[2020-06-26 12:00] VITALS: BP 102/61
[2020-06-26 16:00] VITALS: BP 116/79
[2020-06-26 16:52] VITALS: BP 118/76
--- NOTE | 2020-06-26 16:56 | Discharge Summary ---
Discharge Summary Hospital Course Was the Problem List Reviewed?: Yes Problems/Dx: (1) Alcohol dependence with withdrawal Status: Acute (2) Alcohol intoxication Status: Acute Hospital Course Date of Admission: Jun 24, 2020 at 20:19 Admission Diagnosis : alcohol dependence with withdrawal Family Physician/Provider: Pauline,Local Physician Date of Discharge: 06/26/20 Discharge Diagnosis: alcohol dependence with withdrawal Hospital Course: Mi Richey is a 45-year-old female with history of alcohol dependence who presented with acute alcohol intoxication and was monitored for alcohol withdrawal. She was treated with the alcohol withdrawal protocol and received minimal benzodiazepine support. She did not experience any significant alcohol withdrawal. He waited by social work and [facility] were [facility] [place], [place]. She had ran out of her home prescription of Suboxone and this is not on our pharmacy formulary, so she decided to discharge home. She was in stable condition at the time of discharge. Labs and Pending Lab Test: Laboratory Tests 06/25/20 18:11: Glucometer 76 06/26/20 00:02: Glucometer 95 06/26/20 05:54: Glucometer 93 06/26/20 06:22: Sodium Level 137, Potassium Level 4.2, Chloride Level 108H, Carbon Dioxide Level 23, Anion Gap 6, Blood Urea Nitrogen 8, Creatinine 0.66, Estimat Glomerular Filtration Rate > 60, BUN/Creatinine Ratio 12, Glucose Level 92, Calcium Level 7.9L, Corrected Calcium 8.5, Magnesium Level 2.1, Total Bilirubin 0.5, Aspartate Amino Transf (AST/SGOT) 13, Alanine Aminotransferase (ALT/SGPT) 9, Alkaline Phosphatase 34L, Total Protein 5.5L, Albumin 3.3 06/26/20 12:02: Glucometer 99 Home Meds Active Reported Buprenorphine HCl 8 Mg Tab.subl 4 Mg SL HS 7 Days TAKES OF AN 8MG TAB Buprenorphine HCl 8 Mg Tab.subl 8 Mg SL BID 7 Days Tylenol Extra Strength (Acetaminophen) 500 Mg Tablet 1,000 Mg PO Q8H PRN Multivitamin 1 Each Tablet 1 Each PO DAILY Assessment/Pt Instructions take medications as prescribed. Recommend cessation of alcohol use. Follow-up with your primary care physician. Discharge Planning: <30 minutes discharge planning Discharge Instructions Discharge Diet: No Restrictions Activity as Tolerated: Yes Discharge Physical Examination Vital Signs Vital Signs Date Time Temp Pulse Resp B/P (MAP) Pulse Ox O2 Delivery O2 Flow Rate FiO2 06/26/20 16:00 37.0 60 20 116/79 (91) 98 Room Air General Appearance: No Apparent Distress, Thin Respiratory: Lungs Clear, Normal Breath Sounds, No Respiratory Distress Cardiovascular: Regular Rate, Rhythm, No Edema, No Murmur Gastrointestinal: Normal Bowel Sounds, Non Tender, Soft Extremity: Normal Inspection, Non Tender, No Pedal Edema Skin: Normal Color, Warm/Dry Neurologic/Psychiatric: Alert, Oriented x3, No Motor/Sensory Deficits, Other (agitated) Allergies: Coded Allergies: Sulfa (Sulfonamide Antibiotics) (Verified Allergy, Unknown, Headache, 06/24/20) per discharge summary [facility] ketorolac (Verified Allergy, Unknown, shortnness of Breath/Wheezing, 06/24/20) per discharge summary [facility] metoclopramide (Verified Allergy, Unknown, makes legs feel like they are crawling, 06/24/20) per discharge summary [facility] prochlorperazine (Verified Allergy, Unknown, Makes legs feel like they are crawling, 06/24/20) per discharge summary [facility] clarithromycin (Verified Adverse Reaction, Intermediate, stomach pain, 06/24/20) per discharge summary [facility] Discharge Summary Date of Admission Jun 24, 2020 at 20:19 Date of Discharge Discharge Date: Jun 26, 2020 Discharge Time: 16:53 Admission Diagnosis alcohol dependence with intoxication and withdrawal Discharge Diagnosis EtOH dependence EtOH intoxication EtOH withdrawal (1) Alcohol dependence with withdrawal Status: Acute (2) Alcohol intoxication Status: Acute Clinical Quality Measures DVT/VTE Risk/Contraindication: Risk Factor Score Per Nursin RFS Level Per Nursing on Admit: 1=Low/No VTE PPX CATALINO MACEDO MD Jun 26, 2020 16:56
== END 2020-06-26 16:50 | disposition home or self-care (01) | DRG 897 ==
LOC: 4TH 20:19
PROVIDERS: ADMIT Internal Medicine; ATTEND Internal Medicine
DX: F10.229 Alcohol dependence with intoxication, unspecified (principal); F10.239 Alcohol dependence with withdrawal, unspecified; Y90.6 Blood alcohol level of 120-199 mg/100 ml; Z20.828 Contact with and (suspected) exposure to other viral communicable diseases
CPT/HCPCS: 36415; 80048; 80053; 82962; 83735; 84100; 85025; 87635; 94760

== ENCOUNTER 2020-10-01 19:52 | Emergency (ER) | payer OTHER ==
[~2020-10-01] VITALS: Ht 167 cm; Wt 55.0 kg
[~2020-10-01 19:52] MED LIST: ACET-2267 PO; BACI28.4 TP; BUPR8TAB SL; LD5O35 TP; MULT-1136 PO
--- NOTE | 2020-10-01 19:59 | ED Psychosocial ---
General Chief Complaint: Substance Abuse Stated Complaint: SUBSTANCE ABUSE Source: patient Exam Limitations: no limitations (JACOB MOORE APRN) History of Present Illness Date Seen by Provider: Oct 01, 2020 Time Seen by Provider: 19:56 Initial Comments To ER by EMS with reports of having been using alcohol, marijuana, met hamphetamine and cocaine. She did this because she states that she ran out of her Suboxone 3 days ago. Her brother advised her to continue drinking and that might help. She also wants to see her mother who she states was taken to [facility] by ambulance because she is out of [facility]. Timing/Duration: constant Severity: moderate Associated Symptoms: denies symptoms (JACOB MOORE APRN) Allergies and Home Medications Allergies Coded Allergies: Sulfa (Sulfonamide Antibiotics) (Verified Allergy, Unknown, Headache, 06/24/20) per discharge summary [facility] ketorolac (Verified Allergy, Unknown, shortnness of Breath/Wheezing, 06/24/20) per discharge summary [facility] metoclopramide (Verified Allergy, Unknown, makes legs feel like they are crawling, 06/24/20) per discharge summary [facility] prochlorperazine (Verified Allergy, Unknown, Makes legs feel like they are crawling, 06/24/20) per discharge summary [facility] clarithromycin (Verified Adverse Reaction, Intermediate, stomach pain, 06/24/20) per discharge summary [facility] Home Medications Acetaminophen 500 Mg Tablet, 1,000 MG PO Q8H PRN for PAIN-MILD (1-4), (Reported) Bacitracin 28.4 Gm Oint...g., 28.4 GM TP DAILY Prescribed by: JACOB MOORE on 03/30/20 1211 Buprenorphine HCl 8 Mg Tab.subl, 8 MG SL BID, (Reported) Buprenorphine HCl 8 Mg Tab.subl, 4 MG SL HS, (Reported) TAKES OF AN 8MG TAB Cephalexin 500 Mg Capsule, 500 MG PO TID Prescribed by: JALEEL VALENTIN on 10/02/20 0134 Lidocaine HCl 35 Gm Oint, 35 GM TP TID PRN for PAIN-MODERATE (5-7) Prescribed by: JACOB MOORE on 03/30/20 1211 Multivitamin 1 Each Tablet, 1 EACH PO DAILY, (Reported) Patient Home Medication List Home Medication List Reviewed: Yes (JACOB MOORE APRN) Review of Systems Constitutional: see HPI EENTM: see HPI Respiratory: no symptoms reported Cardiovascular: no symptoms reported Genitourinary: no symptoms reported Musculoskeletal: see HPI Skin: no symptoms reported Psychiatric/Neurological: No Symptoms Reported (JACOB MOORE APRN) Past Kxjcaui-Ctrkbu-Pskljv Hx Patient Social History Type Used: Cigarettes 2nd Hand Smoke Exposure: Yes (JACOB MOORE APRN) Past Medical History Surgeries: No (history not available) Respiratory: No (history not available) Cardiac: No (history not available) Neurological: No (history not available) Genitourinary: No (history not available) Gastrointestinal: No (history not available) Musculoskeletal: No (history not available) Endocrine: No (history not available) HEENT: No (history not available) Cancer: No (history not available) Psychosocial: No (history not available) (JACOB MOORE APRN) Family Medical History Unable to obtain history (JACOB MOORE APRN) Physical Exam Vital Signs - First Documented 10/01/20 19:54 Temp 36.1 Pulse 121 Resp 24 B/P (MAP) 120/103 (109) Pulse Ox 96 O2 Delivery Room Air (JALEEL GARG MD) Capillary Refill : (JACOB MOORE APRN) Height, Weight, BMI Height: '" Weight: lbs. oz. kg; 19.58 BMI Method: General Appearance: WD/WN, no apparent distress, thin, other (Anxious, talking constantly, moving constantly, crying) Neck: non-tender, full range of motion Respiratory: no respiratory distress, no accessory muscle use Cardiovascular: no murmur, tachycardia Gastrointestinal: normal bowel sounds, soft Neurologic/Psychiatric: alert, oriented x 3 Appearance/Memory: appropriate appearance, appropriate insight Behavior/Eye Contact: cooperative, other (tearful but follows direction) Thoughts/Hallucinations: flight of ideas Skin: normal color, warm/dry (JACOB MOORE APRN) Progress/Results/Core Measures Results/Orders Lab Results Laboratory Tests Test 10/01/20 20:00 10/02/20 01:00 Range/Units White Blood Count 10.5 4.3-11.0 10^3/uL Red Blood Count 4.37 3.80-5.11 10^6/uL Hemoglobin 13.2 11.5-16.0 g/dL Hematocrit 39 35-52 % Mean Corpuscular Volume 89 80-99 fL Mean Corpuscular Hemoglobin 30 25-34 pg Mean Corpuscular Hemoglobin Concent 34 32-36 g/dL Red Cell Distribution Width 14.5 10.0-14.5 % Platelet Count 337 130-400 10^3/uL Mean Platelet Volume 9.8 9.0-12.2 fL Immature Granulocyte % (Auto) 0 % Neutrophils (%) (Auto) 59 42-75 % Lymphocytes (%) (Auto) 28 12-44 % Monocytes (%) (Auto) 7 0-12 % Eosinophils (%) (Auto) 5 0-10 % Basophils (%) (Auto) 1 0-10 % Neutrophils # (Auto) 6.2 1.8-7.8 10^3/uL Lymphocytes # (Auto) 3.0 1.0-4.0 10^3/uL Monocytes # (Auto) 0.8 0.0-1.0 10^3/uL Eosinophils # (Auto) 0.5 H 0.0-0.3 10^3/uL Basophils # (Auto) 0.1 0.0-0.1 10^3/uL Immature Granulocyte # (Auto) 0.0 0.0-0.1 10^3/uL Prothrombin Time 12.7 12.2-14.7 SEC INR Comment 0.9 0.8-1.4 Sodium Level 138 135-145 MMOL/L Potassium Level 3.6 3.6-5.0 MMOL/L Chloride Level 105 98-107 MMOL/L Carbon Dioxide Level 21 21-32 MMOL/L Anion Gap 12 5-14 MMOL/L Blood Urea Nitrogen 10 7-18 MG/DL Creatinine 0.69 0.60-1.30 MG/DL Estimat Glomerular Filtration Rate > 60 BUN/Creatinine Ratio 14 Glucose Level 111 H 70-105 MG/DL Calcium Level 8.4 L 8.5-10.1 MG/DL Corrected Calcium 8.2 L 8.5-10.1 MG/DL Total Bilirubin 0.5 0.1-1.0 MG/DL Aspartate Amino Transf (AST/SGOT) 19 5-34 U/L Alanine Aminotransferase (ALT/SGPT) 30 0-55 U/L Alkaline Phosphatase 78 40-136 U/L Total Protein 7.5 6.4-8.2 GM/DL Albumin 4.2 3.2-4.5 GM/DL Serum Test, Qualitative NEGATIVE NEGATIVE Serum Alcohol 189 H <10 MG/DL Urine Color YELLOW Urine Clarity CLEAR Urine pH 5.5 5-9 Urine Specific [place] 1.010 L 1.016-1.022 Urine Protein NEGATIVE NEGATIVE Urine Glucose (UA) NEGATIVE NEGATIVE Urine Ketones NEGATIVE NEGATIVE Urine Nitrite NEGATIVE NEGATIVE Urine Bilirubin NEGATIVE NEGATIVE Urine Urobilinogen 0.2 < = 1.0 MG/DL Urine Leukocyte Esterase 3+ H NEGATIVE Urine RBC (Auto) 1+ H NEGATIVE Urine RBC 2-5 H /HPF Urine WBC >100 H /HPF Urine Squamous Epithelial Cells 2-5 /HPF Urine Crystals NONE /LPF Urine Bacteria FEW H /HPF Urine Casts NONE /LPF Urine Mucus MODERATE H /LPF Urine Culture Indicated YES Urine Opiates Screen NEGATIVE NEGATIVE Urine Oxycodone Screen NEGATIVE NEGATIVE Urine Methadone Screen NEGATIVE NEGATIVE Urine Propoxyphene Screen NEGATIVE NEGATIVE Urine Barbiturates Screen NEGATIVE NEGATIVE Ur Tricyclic Antidepressants Screen NEGATIVE NEGATIVE Urine Phencyclidine Screen NEGATIVE NEGATIVE Urine Amphetamines Screen POSITIVE H NEGATIVE Urine Methamphetamines Screen POSITIVE H NEGATIVE Urine Benzodiazepines Screen POSITIVE H NEGATIVE Urine Cocaine Screen NEGATIVE NEGATIVE Urine Cannabinoids Screen POSITIVE H NEGATIVE (JALEEL GARG MD) My Orders Orders - JALEEL GARG MD Ceftriaxone For Iv Use (Rocephin For I (10/02/20 01:30) Ceftriaxone For Im Use (Rocephin For Im (10/02/20 01:45) Lidocaine 1% Inj 20 Ml (Xylocaine 1% Inj (10/02/20 01:45) (JALEEL GARG MD) Medications Given in ED Current Medications Medications Dose Ordered Sig/Hemalatha Route Start Time Stop Time Status Last Admin Dose Admin Lorazepam 0.5 mg ONCE PRN IVP 10/01/20 20:00 10/01/20 20:00 0.5 MG Lorazepam 1 mg ONCE PRN IVP 10/01/20 20:15 10/01/20 20:25 1 MG (JALEEL GARG MD) Vital Signs/I&O 10/01/20 19:54 Temp 36.1 Pulse 121 Resp 24 B/P (MAP) 120/103 (109) Pulse Ox 96 O2 Delivery Room Air (JALEEL GARG MD) Progress Progress Note : Time: 01:43 Progress Note Patient initially received Ativan because of her agitated behavior. She slept for a few hours and then woke with a much calmer demeanor. She was able to ambulate to the restroom without any assistance safely. She was alert and oriented. With her assistance we were eventually able to find a local address where we could send her by taxi. She was found to have urinary tract infection and a dose of Rocephin was administered. (JALEEL GARG MD) Departure Impression Primary Impression: Drug abuse Additional Impressions: Acute alcoholic intoxication Qualified Codes: F10.921 - Alcohol use, unspecified with intoxication delirium AMS (altered mental status) Qualified Codes: R41.82 - Altered mental status, unspecified Urinary tract infection Qualified Codes: N39.0 - Urinary tract infection, site not specified Disposition: 01 HOME, SELF-CARE Condition: Improved Departure-Patient Inst. Decision time for Depature: 01:00 (JALEEL GARG MD) Referrals: NO,LOCAL PHYSICIAN (PCP) Primary Care Physician Patient Instructions: ALCOHOL AND SUBSTANCE ABUSE, Urinary Tract Infection, Adult (DC) Add. Discharge Instructions: Refrain from excessive alcohol use or illicit drug use. Local resources to help with addiction treatment include the [facility]. You may contact them at [phone] and ask for the addiction treatment staff. You may also try the [facility] office at [phone]. Some local temple-based services also include [facility] at [facility] in [place] or [facility] at [facility] in [place], [place]. Call or return to care if you have any further problems or concerns. Also follow-up with a primary care provider next week regarding your urinary tract infection. All discharge instructions reviewed with patient and/or family. Voiced understanding. Scripts Cephalexin (Keflex) 500 Mg Capsule 500 MG PO TID, #20 CAP Prov: JALEEL GARG MD 10/02/20 JACOB MOORE APRN Oct 01, 2020 19:59 JALEEL GARG MD Oct 02, 2020 01:04
[2020-10-01] MEDS ORDERED: LORazepam INJ 2 MG/ML (ATIVAN) VIAL IVP PRN ×2 (20:00→20:15)
[2020-10-01 20:12] LABS: BASOPHILS # (AUTO) 0.1 10^3/uL (0.0-0.1); BASOPHILS % (AUTO) 1 % (0-10); EOSINOPHILS # (AUTO) 0.5 10^3/uL (0.0-0.3); EOSINOPHILS % (AUTO) 5 % (0-10); HEMATOCRIT 39 % (35-52); HEMOGLOBIN 13.2 g/dL (11.5-16.0); LYMPHOCYTES % (AUTO) 28 % (12-44); MEAN CORPUSCULAR HEMOGLOBIN 30 pg (25-34); MEAN CORPUSCULAR HGB CONC 34 g/dL (32-36); MEAN CORPUSCULAR VOLUME 89 fL (80-99); MEAN PLATELET VOLUME 9.8 fL (9.0-12.2); MONOCYTES # (AUTO) 0.8 10^3/uL (0.0-1.0); MONOCYTES % (AUTO) 7 % (0-12); NEUTROPHILS # (AUTO) 6.2 10^3/uL (1.8-7.8); NEUTROPHILS % (AUTO) 59 % (42-75); PLATELET COUNT 337 10^3/uL (130-400); WHITE BLOOD COUNT 10.5 10^3/uL (4.3-11.0)
[2020-10-01 20:21] LABS: ALBUMIN 4.2 GM/DL (3.2-4.5); CHLORIDE 105 MMOL/L (98-107); POTASSIUM 3.6 MMOL/L (3.6-5.0); SODIUM 138 MMOL/L (135-145)
[2020-10-01 20:22] LABS: CALCIUM 8.4 MG/DL (8.5-10.1)
[2020-10-01 20:23] LABS: GLUCOSE 111 MG/DL (70-105); TOTAL PROTEIN 7.5 GM/DL (6.4-8.2)
[2020-10-01 20:24] LABS: CARBON DIOXIDE 21 MMOL/L (21-32)
[2020-10-01 20:25] LABS: BILIRUBIN,TOTAL 0.5 MG/DL (0.1-1.0)
[2020-10-01 20:27] LABS: ALKALINE PHOSPHATASE 78 U/L (40-136); CREATININE SERUM 0.69 MG/DL (0.60-1.30); GFR ESTIMATED > 60; INR 0.9 (0.8-1.4); PROTHROMBIN TIME PATIENT 12.7 SEC (12.2-14.7)
[2020-10-01 20:28] LABS: BUN/CREATININE RATIO 14
[2020-10-01 20:30] LABS: ALANINE AMINOTRANSFERASE 30 U/L (0-55)
[2020-10-01] MEDS ORDERED: NS IV 1000 ML 1,000 ML IV SCH (21:00)
[2020-10-02 01:07] LABS: BILIRUBIN,URINE NEGATIVE (NEGATIVE); CLARITY,URINE CLEAR; COLOR,URINE YELLOW; GLUCOSE, URINE (UA) NEGATIVE (NEGATIVE); KETONES,URINE NEGATIVE (NEGATIVE); LEUKOCYTE ESTERASE ,URINE 3+ (NEGATIVE); NITRITE,URINE NEGATIVE (NEGATIVE); PH,URINE 5.5 (5-9); PROTEIN,URINE NEGATIVE (NEGATIVE)
[2020-10-02 01:19] LABS: AMPHETAMINE SCREEN, URINE POSITIVE (NEGATIVE); BARBITURATE SCREEN URINE NEGATIVE (NEGATIVE); BENZODIAZEPINES SCREEN URINE POSITIVE (NEGATIVE); CANNABINOID SCREEN, URINE POSITIVE (NEGATIVE); COCAINE SCREEN URINE NEGATIVE (NEGATIVE); METHADONE STAT NEGATIVE (NEGATIVE); METHAMPHETAMINE SCREEN URINE S POSITIVE (NEGATIVE); OPIATE SCREEN URINE NEGATIVE (NEGATIVE); OXYCODONE STAT NEGATIVE (NEGATIVE); PROPOXYPHENE STAT NEGATIVE (NEGATIVE); TRICYCLIC ANTIDEPRESSANTS SCRE NEGATIVE (NEGATIVE)
[2020-10-02 01:27] LABS: BACTERIA,URINE FEW /HPF; WBC,URINE >100 /HPF
[2020-10-02] MEDS ORDERED: cefTRIAXone FOR IV USE 1,000 MG in WATER (STERILE) FOR INJECTION 10 ML IV ONE (01:30)
[2020-10-02] MEDS ORDERED: CEPH-507 PO (01:34)
[2020-10-02] MEDS ORDERED: cefTRIAXone 1,000 MG/2.86 ml vial (IM ONLY) IM ONE (01:45)
[2020-10-02] MEDS ORDERED: LIDOCAINE 1% INJ 20 ML 20 ML VIAL INJ ONE (01:45)
[2020-10-02 01:48] VITALS: BP 94/70
== END 2020-10-02 01:53 | disposition home or self-care (01) ==
LOC: EDUNIT# 19:52 → ER 19:53
DX: F12.10 Cannabis abuse, uncomplicated (principal); F10.129 Alcohol abuse with intoxication, unspecified; R41.82 Altered mental status, unspecified; N39.0 Urinary tract infection, site not specified; F41.9 Anxiety disorder, unspecified; Z88.1 Allergy status to other antibiotic agents; Z88.2 Allergy status to sulfonamides; Z88.6 Allergy status to analgesic agent; Z88.8 Allergy status to other drugs, medicaments and biological substances; Z77.22 Contact with and (suspected) exposure to environmental tobacco smoke (acute) (chronic)
CPT/HCPCS: 80053; 80306; 81000; 84703; 85025; 85610; 87088; 99284; G0480; 36415; 80320

== ENCOUNTER 2020-10-25 20:33 | Emergency (ER) | payer SELFPAY ==
[~2020-10-25] VITALS: Ht 167.7 cm; Wt 50.0 kg
[~2020-10-25 20:33] MED LIST changes: +CEPH-507 PO
[2020-10-25] MEDS ORDERED: cloNIDine 0.1 MG (CATAPRES) TAB PO ONE (21:30)
[2020-10-25] MEDS ORDERED: CLINDAMYCIN 150 MG (CLEOCIN) CAP PO ONE (21:30)
--- NOTE | 2020-10-25 21:52 | ED Integumentary General ---
General Chief Complaint: Skin/Wound Problems Stated Complaint: OPEN SORE ON ARM, SUICIDAL Source: patient Exam Limitations: no limitations History of Present Illness Date Seen by Provider: Oct 25, 2020 Time Seen by Provider: 21:26 Initial Comments Patient presents ER by private conveyance from home with chief complaint she has been out for the last several days of her Suboxone which she has been using for 10 years. Is caused her to have some withdrawal symptoms so she was using speed which started to help but even smoking it was not helping so she started injecting it. She then got 2 abscess sites on her right antecubital space and her left forearm. She says she is felt suicidal and couple days ago she tried to overdose on her recreational drugs unsuccessfully. She is here today because she is still feeling suicidal but she does not have a plan to do anything. She has an appointment in 3 days with her renal medicine specialist doctor in [place], [place] to get restarted on her Suboxone. She is wanting help for her abscesses as well as for her suicidal ideation. Allergies and Home Medications Allergies Coded Allergies: Sulfa (Sulfonamide Antibiotics) (Verified Allergy, Unknown, Headache, 06/24/20) per discharge summary [facility] ketorolac (Verified Allergy, Unknown, shortnness of Breath/Wheezing, 06/24/20) per discharge summary [facility] metoclopramide (Verified Allergy, Unknown, makes legs feel like they are crawling, 06/24/20) per discharge summary [facility] prochlorperazine (Verified Allergy, Unknown, Makes legs feel like they are crawling, 06/24/20) per discharge summary [facility] clarithromycin (Verified Adverse Reaction, Intermediate, stomach pain, 06/24/20) per discharge summary [facility] Home Medications Acetaminophen 500 Mg Tablet, 1,000 MG PO Q8H PRN for PAIN-MILD (1-4), (Reported) Bacitracin 28.4 Gm Oint...g., 28.4 GM TP DAILY Prescribed by: JACOB MOORE on 03/30/20 1211 Buprenorphine HCl 8 Mg Tab.subl, 8 MG SL BID, (Reported) Buprenorphine HCl 8 Mg Tab.subl, 4 MG SL HS, (Reported) TAKES OF AN 8MG TAB Cephalexin 500 Mg Capsule, 500 MG PO TID Prescribed by: JALEEL VALENTIN on 10/02/20 0134 Lidocaine HCl 35 Gm Oint, 35 GM TP TID PRN for PAIN-MODERATE (5-7) Prescribed by: JACOB MOORE on 03/30/20 1211 Multivitamin 1 Each Tablet, 1 EACH PO DAILY, (Reported) Patient Home Medication List Home Medication List Reviewed: Yes Review of Systems Review of Systems Constitutional: No chills, No diaphoresis EENTM: No ear discharge, No hearing loss Respiratory: No cough, No short of breath Cardiovascular: No chest pain, No Hx of Intervention, No palpitations Gastrointestinal: No abdominal pain, No constipation, No diarrhea Genitourinary: No discharge, No dysuria Musculoskeletal: No back pain, No joint pain Psychiatric/Neurological: Denies Anxiety, Denies Depressed All Other Systems Reviewed Negative Unless Noted: Yes Past Cahtlgp-Lqzucv-Gewvrn Hx Patient Social History Alcohol Use: Denies Use Drug of Choice: opiates, Heroin, meth Smoking Status: Current Everyday Smoker Type Used: Cigarettes 2nd Hand Smoke Exposure: Yes Past Medical History Surgeries: No (history not available) Respiratory: No (history not available) Cardiac: No (history not available) Neurological: No (history not available) Genitourinary: No (history not available) Gastrointestinal: No (history not available) Musculoskeletal: No (history not available) Endocrine: No (history not available) HEENT: No (history not available) Cancer: No (history not available) Psychosocial: No (history not available) Family Medical History Unable to obtain history Physical Exam Vital Signs Vital Signs - First Documented 10/25/20 21:13 Temp 37.1 Pulse 110 Resp 20 B/P (MAP) 133/96 (108) Pulse Ox 95 Capillary Refill : General Appearance: WD/WN, no apparent distress HEENT: PERRL/EOMI, pharynx normal Neck: full range of motion, normal inspection Cardiovascular: normal peripheral pulses, regular rate, rhythm Respiratory: lungs clear, normal breath sounds, no respiratory distress, no accessory muscle use Gastrointestinal: normal bowel sounds, non tender Neurologic/Psychiatric: alert, normal mood/affect, oriented x 3 Skin: other (Right antecubital space has a draining area of induration without fluctuance. Left medial elbow has a 3 cm nodule with fluctuance and pointing.) Progress/Results/Core Measures Results/Orders Lab Results Laboratory Tests Test 10/25/20 22:10 10/25/20 22:12 10/25/20 22:15 Range/Units White Blood Count 6.4 4.3-11.0 10^3/uL Red Blood Count 4.37 3.80-5.11 10^6/uL Hemoglobin 13.3 11.5-16.0 g/dL Hematocrit 40 35-52 % Mean Corpuscular Volume 91 80-99 fL Mean Corpuscular Hemoglobin 30 25-34 pg Mean Corpuscular Hemoglobin Concent 33 32-36 g/dL Red Cell Distribution Width 14.1 10.0-14.5 % Platelet Count 313 130-400 10^3/uL Mean Platelet Volume 10.1 9.0-12.2 fL Immature Granulocyte % (Auto) 0 % Neutrophils (%) (Auto) 61 42-75 % Lymphocytes (%) (Auto) 26 12-44 % Monocytes (%) (Auto) 9 0-12 % Eosinophils (%) (Auto) 3 0-10 % Basophils (%) (Auto) 1 0-10 % Neutrophils # (Auto) 3.9 1.8-7.8 10^3/uL Lymphocytes # (Auto) 1.7 1.0-4.0 10^3/uL Monocytes # (Auto) 0.6 0.0-1.0 10^3/uL Eosinophils # (Auto) 0.2 0.0-0.3 10^3/uL Basophils # (Auto) 0.0 0.0-0.1 10^3/uL Immature Granulocyte # (Auto) 0.0 0.0-0.1 10^3/uL Sodium Level 138 135-145 MMOL/L Potassium Level 3.8 3.6-5.0 MMOL/L Chloride Level 103 98-107 MMOL/L Carbon Dioxide Level 21 21-32 MMOL/L Anion Gap 14 5-14 MMOL/L Blood Urea Nitrogen 11 7-18 MG/DL Creatinine 0.72 0.60-1.30 MG/DL Estimat Glomerular Filtration Rate > 60 BUN/Creatinine Ratio 15 Glucose Level 70 70-105 MG/DL Calcium Level 9.1 8.5-10.1 MG/DL Corrected Calcium 8.9 8.5-10.1 MG/DL Total Bilirubin 0.8 0.1-1.0 MG/DL Aspartate Amino Transf (AST/SGOT) 25 5-34 U/L Alanine Aminotransferase (ALT/SGPT) 17 0-55 U/L Alkaline Phosphatase 57 40-136 U/L Total Protein 7.6 6.4-8.2 GM/DL Albumin 4.2 3.2-4.5 GM/DL Salicylates Level < 5.0 L 5.0-20.0 MG/DL Acetaminophen Level < 10 L 10-30 UG/ML Serum Alcohol 10 <10 MG/DL Coronavirus 2019 (ANG) Negative Negative Urine Color YELLOW Urine Clarity CLOUDY Urine pH 6.0 5-9 Urine Specific [place] 1.025 H 1.016-1.022 Urine Protein NEGATIVE NEGATIVE Urine Glucose (UA) NEGATIVE NEGATIVE Urine Ketones NEGATIVE NEGATIVE Urine Nitrite NEGATIVE NEGATIVE Urine Bilirubin NEGATIVE NEGATIVE Urine Urobilinogen 0.2 < = 1.0 MG/DL Urine Leukocyte Esterase NEGATIVE NEGATIVE Urine RBC (Auto) NEGATIVE NEGATIVE Urine RBC NONE /HPF Urine WBC 5-10 H /HPF Urine Squamous Epithelial Cells >50 H /HPF Urine Crystals NONE /LPF Urine Bacteria LARGE H /HPF Urine Casts NONE /LPF Urine Mucus NEGATIVE /LPF Urine Culture Indicated YES Urine Opiates Screen NEGATIVE NEGATIVE Urine Oxycodone Screen NEGATIVE NEGATIVE Urine Methadone Screen NEGATIVE NEGATIVE Urine Propoxyphene Screen NEGATIVE NEGATIVE Urine Barbiturates Screen NEGATIVE NEGATIVE Ur Tricyclic Antidepressants Screen NEGATIVE NEGATIVE Urine Phencyclidine Screen NEGATIVE NEGATIVE Urine Amphetamines Screen POSITIVE H NEGATIVE Urine Methamphetamines Screen POSITIVE H NEGATIVE Urine Benzodiazepines Screen NEGATIVE NEGATIVE Urine Cocaine Screen NEGATIVE NEGATIVE Urine Cannabinoids Screen POSITIVE H NEGATIVE My Orders Orders - MICHAEL PENG Clonidine Tablet (Catapres Tablet) (10/25/20 21:30) Clindamycin Capsule (Cleocin Capsule) (10/25/20 21:30) Ua Culture If Indicated (10/25/20 21:53) Cbc With Automated Diff (10/25/20 21:53) Comprehensive Metabolic Panel (10/25/20 21:53) Alcohol (10/25/20 21:53) Drug Screen Stat (Urine) (10/25/20 21:53) Acetaminophen (10/25/20 21:53) Salicylate (10/25/20 21:53) Ekg Tracing (10/25/20 21:53) Monitor-Rhythm Ecg Trace Only (10/25/20 21:53) Bh Status Checks/Observation Q15M (1/18/21 21:53) Urine Bedside (10/25/20 21:53) Covid 19 Inhouse Test (10/25/20 21:55) Urine Culture (10/25/20 22:15) Medications Given in ED Current Medications Medications Dose Ordered Sig/Hemalatha Route Start Time Stop Time Status Last Admin Dose Admin Clindamycin HCl 450 mg ONCE ONCE PO 10/25/20 21:30 10/25/20 21:33 DC 10/25/20 21:39 450 MG Clonidine HCl 0.1 mg ONCE ONCE PO 10/25/20 21:30 10/25/20 21:33 DC 10/25/20 21:39 0.1 MG Vital Signs/I&O 10/25/20 21:13 Temp 37.1 Pulse 110 Resp 20 B/P (MAP) 133/96 (108) Pulse Ox 95 Progress Progress Note #1: Time: 22:30 Progress Note Thrombophlebitis. She has an allergy to sulfa. We are going to try clindamycin for its good coverage against MRSA. The patient made multiple statements of feeling suicidal to front desk specialist staff and when we inquired about this she states she does not really have a plan she is just going out of her mind with withdrawals symptoms from Suboxone and has been using methamphetamines and heroin to try and calm her withdrawal symptoms. She has an appointment with her doctor to get her Suboxone refilled in 3 days. She says she did attempt suicide a few days ago by overdose unsuccessfully at home. We gave her a dose of clonidine to help with some of her withdrawal symptoms. She has several times for a prescription for Suboxone and was told this is not a type of medicine we prescribed from the ER and she should follow-up with her prescribing doctor. And she said she has been to [facility] inpatient in the past and would like to go back there because she thinks they will give her Suboxone while they treat her for her suicidal ideation brought on by withdrawal symptoms. We agreed to discussed the case with [facility] to pursue inpatient psychiatric care. Progress Note #2: Time: 23:14 Progress Note Patient states she is not truly suicidal she is just having difficulty dealing with the Suboxone withdrawal. She says she is not going to go home. She does want to follow-up with her clinician in 3 days and since this is all stemming from her wanting to be on Suboxone I suspect she probably will do that. I am inclined to believe her at this time. She says she will come back to the ER if she has any further problems. 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 We will send her a little ondansetron as well for nausea related to the antibiotics. Initial ECG Impression Date: Oct 25, 2020 Initial ECG Impression Time: 21:52 Initial ECG Rate: 90 Initial ECG Rhythm: Normal Sinus Initial ECG Intervals: Normal Initial ECG Impression: Normal Comment Normal sinus rhythm without clinically relevant ST elevation or depression. Departure Impression Primary Impression: Suicidal ideation Additional Impressions: OPIOID DEPENDENCE WITH WITHDRAWAL Phlebitis after infusion Qualified Codes: T80.1XXA - Vascular complications following infusion, transfusion and therapeutic injection, initial encounter; I80.9 - Phlebitis and thrombophlebitis of unspecified site Abscess Disposition: HOME, SELF-CARE Condition: Stable Departure-Patient Inst. Decision time for Depature: 23:15 Referrals: NO,LOCAL PHYSICIAN (PCP/Family) Primary Care Physician Patient Instructions: Abscess Incision and Drainage ED Add. Discharge Instructions: Keep the skin clean with regular soap and water only. Warm moist compresses as necessary for pain. Tylenol 1000 mg every 8 hours as necessary for pain. Ibuprofen 800 mg every 8 hours as necessary for pain. Clindamycin 3 capsules 3 times a day for the next week. Expect improvement over the next 2 to 3 days and resolution of symptoms in 1 to 2 weeks. Keep your follow-up appointment with your primary care provider for Suboxone. Return to the nearest ER if your symptoms worsen. All discharge instructions reviewed with patient and/or family. Voiced understanding. Scripts Ondansetron (Ondansetron Odt) 4 Mg Tab.rapdis 4 MG PO Q6H PRN for NAUSEA/VOMITING, #8 TAB 0 Refills Prov: MICHAEL PENG 10/25/20 MICHEAL PENG Oct 25, 2020 21:52
[2020-10-25 22:22] LABS: BASOPHILS % (AUTO) 1 % (0-10); EOSINOPHILS # (AUTO) 0.2 10^3/uL (0.0-0.3); EOSINOPHILS % (AUTO) 3 % (0-10); HEMATOCRIT 40 % (35-52); HEMOGLOBIN 13.3 g/dL (11.5-16.0); LYMPHOCYTES # (AUTO) 1.7 10^3/uL (1.0-4.0); LYMPHOCYTES % (AUTO) 26 % (12-44); MEAN CORPUSCULAR HEMOGLOBIN 30 pg (25-34); MEAN CORPUSCULAR HGB CONC 33 g/dL (32-36); MEAN CORPUSCULAR VOLUME 91 fL (80-99); MEAN PLATELET VOLUME 10.1 fL (9.0-12.2); MONOCYTES # (AUTO) 0.6 10^3/uL (0.0-1.0); MONOCYTES % (AUTO) 9 % (0-12); NEUTROPHILS # (AUTO) 3.9 10^3/uL (1.8-7.8); NEUTROPHILS % (AUTO) 61 % (42-75); PLATELET COUNT 313 10^3/uL (130-400); WHITE BLOOD COUNT 6.4 10^3/uL (4.3-11.0)
[2020-10-25 22:23] LABS: BILIRUBIN,URINE NEGATIVE (NEGATIVE); CLARITY,URINE CLOUDY; COLOR,URINE YELLOW; GLUCOSE, URINE (UA) NEGATIVE (NEGATIVE); KETONES,URINE NEGATIVE (NEGATIVE); LEUKOCYTE ESTERASE ,URINE NEGATIVE (NEGATIVE); NITRITE,URINE NEGATIVE (NEGATIVE); PROTEIN,URINE NEGATIVE (NEGATIVE)
[2020-10-25 22:30] LABS: BACTERIA,URINE LARGE /HPF
[2020-10-25 22:31] LABS: SQUAMOUS EPITHELIAL CELL,UR >50 /HPF
[2020-10-25 22:33] LABS: ALBUMIN 4.2 GM/DL (3.2-4.5); CHLORIDE 103 MMOL/L (98-107); POTASSIUM 3.8 MMOL/L (3.6-5.0); SODIUM 138 MMOL/L (135-145)
[2020-10-25 22:34] LABS: CALCIUM 9.1 MG/DL (8.5-10.1)
[2020-10-25 22:35] LABS: AMPHETAMINE SCREEN, URINE POSITIVE (NEGATIVE); BARBITURATE SCREEN URINE NEGATIVE (NEGATIVE); BENZODIAZEPINES SCREEN URINE NEGATIVE (NEGATIVE); CANNABINOID SCREEN, URINE POSITIVE (NEGATIVE); COCAINE SCREEN URINE NEGATIVE (NEGATIVE); METHADONE STAT NEGATIVE (NEGATIVE); METHAMPHETAMINE SCREEN URINE S POSITIVE (NEGATIVE); OPIATE SCREEN URINE NEGATIVE (NEGATIVE); OXYCODONE STAT NEGATIVE (NEGATIVE); PROPOXYPHENE STAT NEGATIVE (NEGATIVE); TRICYCLIC ANTIDEPRESSANTS SCRE NEGATIVE (NEGATIVE)
[2020-10-25 22:35] LABS: GLUCOSE 70 MG/DL (70-105)
[2020-10-25 22:36] LABS: CARBON DIOXIDE 21 MMOL/L (21-32); TOTAL PROTEIN 7.6 GM/DL (6.4-8.2)
[2020-10-25 22:37] LABS: BILIRUBIN,TOTAL 0.8 MG/DL (0.1-1.0)
[2020-10-25 22:39] LABS: ALKALINE PHOSPHATASE 57 U/L (40-136); CREATININE SERUM 0.72 MG/DL (0.60-1.30); GFR ESTIMATED > 60
[2020-10-25 22:41] LABS: BUN/CREATININE RATIO 15
[2020-10-25 22:42] LABS: ALANINE AMINOTRANSFERASE 17 U/L (0-55); SALICYLATE < 5.0 MG/DL (5.0-20.0)
[2020-10-25 22:51] LABS: ACETAMINOPHEN < 10 UG/ML (10-30)
[2020-10-25] MEDS ORDERED: ONDA4TAB11 PO (23:16)
[2020-10-25 23:34] VITALS: BP 156/106
== END 2020-10-25 23:38 | disposition home or self-care (01) ==
LOC: EDUNIT# 20:33 → ER 20:38
DX: R45.851 Suicidal ideations (principal); F11.20 Opioid dependence, uncomplicated; T80.1XXA Vascular complications following infusion, transfusion and therapeutic injection, initial encounter; I80.9 Phlebitis and thrombophlebitis of unspecified site; L02.91 Cutaneous abscess, unspecified; F17.210 Nicotine dependence, cigarettes, uncomplicated; Z20.828 Contact with and (suspected) exposure to other viral communicable diseases; Z88.2 Allergy status to sulfonamides; Z88.1 Allergy status to other antibiotic agents; Z88.6 Allergy status to analgesic agent; Z88.8 Allergy status to other drugs, medicaments and biological substances
CPT/HCPCS: 80053; 80306; 81000; 84703; 85025; 87088; 93041; G0480 ×3; U0002; 36415; 80320; 80329; 87635; 93005

== ENCOUNTER 2020-11-12 15:29 | Emergency (ER) | payer SELFPAY ==
[~2020-11-12] VITALS: Ht 167.7 cm; Wt 50.0 kg
[~2020-11-12 15:29] MED LIST changes: +ONDA4TAB11 PO
[2020-11-12] MEDS ORDERED: FAMOTIDINE 20MG/2ML IV (PEPCID) IV STA (15:50)
[2020-11-12] MEDS ORDERED: LACTATED RINGERS 1,000 ML IV ONE (16:00)
[2020-11-12] MEDS ORDERED: LORazepam INJ 2 MG/ML (ATIVAN) VIAL IVP PRN (16:00)
[2020-11-12] MEDS ORDERED: ONDANSETRON 4 MG/2 ML (SDV) Z0FRAN IVP ONE (16:00)
--- NOTE | 2020-11-12 16:04 | NUR ---
POLICE HERE IN ED SPEAKING WITH PTS BROTHER ON THE PHONE. BROTHER STATES HE DID NOT CALL HER TODAY AND TELL HER THEIR MOTHER . STATES HE SPOKE WITH MOM ON THE PHONE LAST NIGHT AND SHE WAS DOING WELL.
[2020-11-12 16:19] LABS: BASOPHILS # (AUTO) 0.1 10^3/uL (0.0-0.1); BASOPHILS % (AUTO) 1 % (0-10); EOSINOPHILS # (AUTO) 0.2 10^3/uL (0.0-0.3); EOSINOPHILS % (AUTO) 2 % (0-10); HEMATOCRIT 41 % (35-52); HEMOGLOBIN 13.6 g/dL (11.5-16.0); LYMPHOCYTES # (AUTO) 2.9 10^3/uL (1.0-4.0); LYMPHOCYTES % (AUTO) 33 % (12-44); MEAN CORPUSCULAR HEMOGLOBIN 31 pg (25-34); MEAN CORPUSCULAR HGB CONC 33 g/dL (32-36); MEAN CORPUSCULAR VOLUME 92 fL (80-99); MEAN PLATELET VOLUME 9.9 fL (9.0-12.2); MONOCYTES # (AUTO) 0.7 10^3/uL (0.0-1.0); MONOCYTES % (AUTO) 7 % (0-12); NEUTROPHILS % (AUTO) 56 % (42-75); PLATELET COUNT 436 10^3/uL (130-400); WHITE BLOOD COUNT 8.9 10^3/uL (4.3-11.0)
[2020-11-12 16:32] LABS: ALBUMIN 4.5 GM/DL (3.2-4.5); CHLORIDE 107 MMOL/L (98-107); POTASSIUM 3.9 MMOL/L (3.6-5.0); SODIUM 141 MMOL/L (135-145)
[2020-11-12 16:33] LABS: CALCIUM 9.4 MG/DL (8.5-10.1)
[2020-11-12 16:35] LABS: GLUCOSE 88 MG/DL (70-105); TOTAL PROTEIN 8.4 GM/DL (6.4-8.2)
[2020-11-12 16:36] LABS: BILIRUBIN,TOTAL 0.2 MG/DL (0.1-1.0); CARBON DIOXIDE 22 MMOL/L (21-32)
[2020-11-12 16:38] LABS: ALKALINE PHOSPHATASE 63 U/L (40-136); CREATININE SERUM 0.72 MG/DL (0.60-1.30); GFR ESTIMATED > 60
[2020-11-12 16:40] LABS: BUN/CREATININE RATIO 17
[2020-11-12 16:41] LABS: ALANINE AMINOTRANSFERASE 13 U/L (0-55); SALICYLATE < 5.0 MG/DL (5.0-20.0)
[2020-11-12 16:59] LABS: ACETAMINOPHEN < 10 UG/ML (10-30)
[2020-11-12 17:01] LABS: TSH (THYROID ANALYZER) 4.14 UIU/ML (0.35-4.94)
--- NOTE | 2020-11-12 17:39 | ED Psychosocial ---
General Chief Complaint: Psych/Social Disorder Stated Complaint: SUICIDAL Nursing Triage Note: PT AMB TO RM 8 CRYING UNCONTROLLABLY STATING THAT HER MOM . PT STATES THAT SHE HAS BEEN DRINKING TODAY AND CAME TO ER TO GET HER ARM LOOKED AT. STATES HER BROTHER CALLED HER AND TOLD HER THAT THEIR MOM HAD IN [place] TODAY. PT STATES SHE STARTED DRINKING MORE AFTER TALKING TO HER BROTHER. STATES SHE IS SUICIDAL AFTER HEARING ABOUT MOTHERS . Source: patient, police, other Exam Limitations: intoxication (Telemedicine physician) (JALEEL GARG MD) History of Present Illness Date Seen by Provider: Nov 12, 2020 Time Seen by Provider: 15:35 Initial Comments This is a 45-year-old woman presents to the emergency room accompanied by [place] police after she made suicidal comments to her telemedicine physician, Dr. Abdullahi who called law enforcement. She reportedly stated "if I had a gun and shoot myself". Patient has a history of polysubstance abuse and is currently on Suboxone prescribed by Dr. Abdullahi. 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 Patient also has a well-healing abscess on her right arm that she calls attention to during assessment. Patient is sobbing and crying hysterically stating that her mother in [facility] overdosed and today. Law enforcement checked in this story with her brother who states her mother is actually alive and living in [facility]. They are doing a welfare check with the sciences dean's department. Patient admits to drinking several shots of alcohol today. She denies any drug use. She complains of nausea and abdominal discomfort. (JALEEL GARG MD) Allergies and Home Medications Allergies Coded Allergies: Sulfa (Sulfonamide Antibiotics) (Verified Allergy, Unknown, Headache, 06/24/20) per discharge summary [facility] ketorolac (Verified Allergy, Unknown, shortnness of Breath/Wheezing, 06/24/20) per discharge summary [facility] metoclopramide (Verified Allergy, Unknown, makes legs feel like they are crawling, 06/24/20) per discharge summary [facility] prochlorperazine (Verified Allergy, Unknown, Makes legs feel like they are crawling, 06/24/20) per discharge summary [facility] clarithromycin (Verified Adverse Reaction, Intermediate, stomach pain, 06/24/20) per discharge summary [facility] Home Medications Acetaminophen 500 Mg Tablet, 1,000 MG PO Q8H PRN for PAIN-MILD (1-4), (Reported) Bacitracin 28.4 Gm Oint...g., 28.4 GM TP DAILY Prescribed by: JACOB MOORE on 03/30/20 1211 Buprenorphine HCl 8 Mg Tab.subl, 8 MG SL BID, (Reported) Buprenorphine HCl 8 Mg Tab.subl, 4 MG SL HS, (Reported) TAKES OF AN 8MG TAB Cephalexin 500 Mg Capsule, 500 MG PO TID Prescribed by: JALEEL FERNÁNDEZ on 10/02/20 0134 Lidocaine HCl 35 Gm Oint, 35 GM TP TID PRN for PAIN-MODERATE (5-7) Prescribed by: JACOB MOORE on 03/30/20 1211 Multivitamin 1 Each Tablet, 1 EACH PO DAILY, (Reported) Ondansetron 4 Mg Tab.rapdis, 4 MG PO Q6H PRN for NAUSEA/VOMITING Prescribed by: MICHAEL MIJARES on 10/25/20 2316 Patient Home Medication List Home Medication List Reviewed: Yes (JALEEL GARG MD) Review of Systems Constitutional: see HPI EENTM: no symptoms reported Respiratory: no symptoms reported Cardiovascular: no symptoms reported Gastrointestinal: see HPI Genitourinary: no symptoms reported : No Musculoskeletal: no symptoms reported Skin: see HPI Psychiatric/Neurological: See HPI (JALEEL GARG MD) Past Zqkihta-Bnukkr-Fumczo Hx Past Med/Social Hx: Reviewed Nursing Past Med/Soc Hx (JALEEL GARG MD) Patient Social History Alcohol Use: Regular Use Number of Drinks Today: FF Alcohol Beverage of Choice: Vodka Drug of Choice: opiates, Heroin, meth Smoking Status: Current Everyday Smoker Type Used: Cigarettes 2nd Hand Smoke Exposure: Yes Recent Infectious Disease Expo: No (JALEEL GARG MD) Immunizations Up To Date Tetanus Booster (TDap): Unknown (JALEEL GARG MD) Past Medical History Surgeries: No (history not available) Respiratory: No (history not available) Cardiac: No (history not available) Neurological: No (history not available) Genitourinary: No (history not available) Gastrointestinal: No (history not available) Musculoskeletal: No (history not available) Endocrine: No (history not available) HEENT: No (history not available) Cancer: No (history not available) Psychosocial: No (history not available) (JALEEL GARG MD) Family Medical History Unable to obtain history (JALEEL GARG MD) Physical Exam Vital Signs - First Documented 11/12/20 15:41 Temp 36.7 Pulse 104 Resp 22 B/P (MAP) 127/90 (102) Pulse Ox 95 O2 Delivery Room Air (MICHAEL MIJARES) Capillary Refill : Less Than 3 Seconds (JALEEL GARG MD) Height, Weight, BMI Height: '" Weight: lbs. oz. 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 tested, alert, other (Delusional, hysterical, crying) Appearance/Memory: disheveled, impaired insight Behavior/Eye Contact: cooperative, good eye contact Thoughts/Hallucinations: delusions Skin: normal color, warm/dry, other (Nodular scar density in the right antecubital fossa region from a prior abscess) (JALEEL GARG MD) Progress/Results/Core Measures Results/Orders Lab Results Laboratory Tests Test 11/12/20 16:10 Range/Units White Blood Count 8.9 4.3-11.0 10^3/uL Red Blood Count 4.46 3.80-5.11 10^6/uL Hemoglobin 13.6 11.5-16.0 g/dL Hematocrit 41 35-52 % Mean Corpuscular Volume 92 80-99 fL Mean Corpuscular Hemoglobin 31 25-34 pg Mean Corpuscular Hemoglobin Concent 33 32-36 g/dL Red Cell Distribution Width 14.4 10.0-14.5 % Platelet Count 436 H 130-400 10^3/uL Mean Platelet Volume 9.9 9.0-12.2 fL Immature Granulocyte % (Auto) 1 % Neutrophils (%) (Auto) 56 42-75 % Lymphocytes (%) (Auto) 33 12-44 % Monocytes (%) (Auto) 7 0-12 % Eosinophils (%) (Auto) 2 0-10 % Basophils (%) (Auto) 1 0-10 % Neutrophils # (Auto) 5.0 1.8-7.8 10^3/uL Lymphocytes # (Auto) 2.9 1.0-4.0 10^3/uL Monocytes # (Auto) 0.7 0.0-1.0 10^3/uL Eosinophils # (Auto) 0.2 0.0-0.3 10^3/uL Basophils # (Auto) 0.1 0.0-0.1 10^3/uL Immature Granulocyte # (Auto) 0.1 0.0-0.1 10^3/uL Sodium Level 141 135-145 MMOL/L Potassium Level 3.9 3.6-5.0 MMOL/L Chloride Level 107 98-107 MMOL/L Carbon Dioxide Level 22 21-32 MMOL/L Anion Gap 12 5-14 MMOL/L Blood Urea Nitrogen 12 7-18 MG/DL Creatinine 0.72 0.60-1.30 MG/DL Estimat Glomerular Filtration Rate > 60 BUN/Creatinine Ratio 17 Glucose Level 88 70-105 MG/DL Calcium Level 9.4 8.5-10.1 MG/DL Corrected Calcium 9.0 8.5-10.1 MG/DL Total Bilirubin 0.2 0.1-1.0 MG/DL Aspartate Amino Transf (AST/SGOT) 19 5-34 U/L Alanine Aminotransferase (ALT/SGPT) 13 0-55 U/L Alkaline Phosphatase 63 40-136 U/L Total Protein 8.4 H 6.4-8.2 GM/DL Albumin 4.5 3.2-4.5 GM/DL TSH [place] Testing 4.14 0.35-4.94 UIU/ML Serum Test, Qualitative NEGATIVE NEGATIVE Salicylates Level < 5.0 L 5.0-20.0 MG/DL Acetaminophen Level < 10 L 10-30 UG/ML Serum Alcohol 170 H <10 MG/DL (MICHAEL MIJARES) Medications Given in ED Current Medications Medications Dose Ordered Sig/Hemalatha Route Start Time Stop Time Status Last Admin Dose Admin Lactated Ringer's 1,000 ml @ 0 mls/hr Q0M ONCE IV 11/12/20 16:00 11/12/20 16:01 DC 11/12/20 16:09 0 MLS/HR Lorazepam 0.5 mg Q8HR PRN IVP 11/12/20 16:00 11/12/20 16:08 0.5 MG Ondansetron HCl 4 mg ONCE ONCE IVP 11/12/20 16:00 11/12/20 16:01 DC 11/12/20 16:08 4 MG (MICHAEL MIJARES) Vital Signs/I&O 11/12/20 15:41 Temp 36.7 Pulse 104 Resp 22 B/P (MAP) 127/90 (102) Pulse Ox 95 O2 Delivery Room Air (MICHAEL MIJARES) Blood Pressure Mean: 102 Progress Progress Note : Time: 17:39 Progress Note Patient was seen and evaluated. Zofran and Pepcid were given for the GI upset. A liter of LR is infusing. Urine drug screen is pending. Ativan was given for her agitation and she is now sleeping comfortably. Care of this patient is being transitioned to Dr. Mijares. (JALEEL GARG MD) Progress Note #1: Time: 18:07 Progress Note Assumed care of the patient at shift change. I agree with above documented physical exam and history per Dr. Fernández. Patient is sleeping at this time. She has received half a milligram of Ativan. We feel it is in her best interest to allow her to sleep this off but her alcohol level come down and give her a liter of fluids. We will then reassess her to see if her psychosis is persistent. Her significant other has checked in a couple times with her. We are not permitting visitors at this time since she is resting comfortably as we are trying not to further provoker. After an hour or 2 we will reassess and see how she is feeling. Progress Note #2: Time: 18:49 Progress Note Discussed the case with the patient noted she is awake and she is alert, oriented and showing no psychotic signs. She denies any hallucinations. She is not endorsing any delusions. She denies suicidality. She says she is ready to go home and her significant other has been here the entire time ready to take her home. One of her concerns was she was out of her Suboxone and her significant other went and picked it up while she was in the ER. We discussed this stress management strategies and gave her return precautions if her symptoms got worse. We also set her up with a suicide prevention plan and follow-up in the morning with [facility] via phone. She is okay with this plan. (MICHAEL MIJARES) Departure Communication (Admissions) 1841-patient is arousable. She states she does not want to hurt herself anymore and everything is "fine". She promises that she will not attempt to harm herself and she does want to go home. She was initially upset because she was out of her Suboxone prescription. is here and states that he has the prescription. As such we will discharged home. (JACOB MOORE APRN) Impression Primary Impression: Acute alcoholic intoxication Qualified Codes: F10.929 - Alcohol use, unspecified with intoxication, unspecified Additional Impression: Suicidal ideation Disposition: 01 HOME, SELF-CARE Condition: Improved Departure-Patient Inst. Decision time for Depature: 18:42 (JACOB MOORE APRN) Referrals: NO,LOCAL PHYSICIAN (PCP/Family) Primary Care Physician Patient Instructions: Polysubstance Abuse (DC) Add. Discharge Instructions: 1. Follow-up with your doctor this week for recheck. Return to ER for any worsening. Your has your Suboxone prescription. Expect a phone call in the morning from [facility]. If you have any questions or concerns you may call them at [phone]. All discharge instructions reviewed with patient and/or family. Voiced understanding. JALEEL GARG MD Nov 12, 2020 17:39 MICHAEL MIJARES Nov 12, 2020 18:08 JACOB MOORE APRN Nov 12, 2020 18:42
--- NOTE | 2020-11-12 18:56 | NUR ---
ATTEMPTED TO CALL THE [facility] MULTIPLE TIMES. THE RECORDING SAID THERE WERE NO CLINICIANS IN THE [place]. PT WAS PROVIDED WITH THE S[facility] LINE NUMBER.
[2020-11-12 18:58] VITALS: BP 129/86
== END 2020-11-12 18:59 | disposition home or self-care (01) ==
LOC: EDUNIT# 15:29 → ER 15:30
DX: F10.129 Alcohol abuse with intoxication, unspecified (principal); R45.851 Suicidal ideations; F17.210 Nicotine dependence, cigarettes, uncomplicated; Z88.2 Allergy status to sulfonamides; Z88.1 Allergy status to other antibiotic agents; Z88.8 Allergy status to other drugs, medicaments and biological substances; Z88.6 Allergy status to analgesic agent
CPT/HCPCS: 80053; 84443; 84703; 85025; 99284; G0480 ×3; 36415; 80320; 80329; 93005

== ENCOUNTER 2021-03-21 21:01 | Emergency (ER) | payer SELFPAY ==
[~2021-03-21] VITALS: Ht 167 cm; Wt 60.7 kg
[2021-03-21 21:26] VITALS: BP 141/92
--- NOTE | 2021-03-21 21:29 | ED EENT ---
History of Present Illness General Chief Complaint: Eye Problems Stated Complaint: L EYE IRRITATION/REDNESS Source: patient Exam Limitations: no limitations History of Present Illness Date Seen by Provider: Mar 21, 2021 Time Seen by Provider: 21:18 Initial Comments This is a 45-year-old female who presents to the ER with complaints of left eye irritation x3 weeks. States that she been using saline drops and Vaseline at night because when she wakes in the morning she has some yellow crusting around the eye. Denies any injury. No vision changes. Allergies and Home Medications Allergies Coded Allergies: Sulfa (Sulfonamide Antibiotics) (Verified Allergy, Unknown, Headache, 06/24/20) per discharge summary [facility] ketorolac (Verified Allergy, Unknown, shortnness of Breath/Wheezing, 06/24/20) per discharge summary [facility] metoclopramide (Verified Allergy, Unknown, makes legs feel like they are crawling, 06/24/20) per discharge summary [facility] prochlorperazine (Verified Allergy, Unknown, Makes legs feel like they are crawling, 06/24/20) per discharge summary [facility] clarithromycin (Verified Adverse Reaction, Intermediate, stomach pain, 06/24/20) per discharge summary [facility] Home Medications Acetaminophen 500 Mg Tablet, 1,000 MG PO Q8H PRN for PAIN-MILD (1-4), (Reported) Bacitracin 28.4 Gm Oint...g., 28.4 GM TP DAILY Prescribed by: JACOB MOORE on 03/30/20 1211 Buprenorphine HCl 8 Mg Tab.subl, 8 MG SL BID, (Reported) Buprenorphine HCl 8 Mg Tab.subl, 4 MG SL HS, (Reported) TAKES OF AN 8MG TAB Cephalexin 500 Mg Capsule, 500 MG PO TID Prescribed by: JALEEL VALENTIN on 10/02/20 0134 Lidocaine HCl 35 Gm Oint, 35 GM TP TID PRN for PAIN-MODERATE (5-7) Prescribed by: JACOB MOORE on 03/30/20 1211 Multivitamin 1 Each Tablet, 1 EACH PO DAILY, (Reported) Ondansetron 4 Mg Tab.rapdis, 4 MG PO Q6H PRN for NAUSEA/VOMITING Prescribed by: MICHAEL PENG on 10/25/20 2316 Patient Home Medication List Home Medication List Reviewed: Yes Review of Systems Review of Systems Constitutional: no symptoms reported Eyes: See HPI Ears: No Symptoms Reported Nose: no symptoms reported Mouth: no symptoms reported Throat: no symptoms reported Respiratory: no symptoms reported Cardiovascular: no symptoms reported Gastrointestinal: no symptoms reported Musculoskeletal: no symptoms reported Skin: no symptoms reported Neurological: No Symptoms Reported Immunological/Allergic: no symptoms reported Past Ssvwlgn-Mjxeyp-Kuklgs Hx Patient Social History Alcohol Beverage of Choice: Vodka Drug of Choice: opiates, Heroin, meth Type Used: Cigarettes 2nd Hand Smoke Exposure: Yes Immunizations Up To Date Tetanus Booster (TDap): Unknown Past Medical History Surgeries: No (history not available) Respiratory: No (history not available) Cardiac: No (history not available) Neurological: No (history not available) Genitourinary: No (history not available) Gastrointestinal: No (history not available) Musculoskeletal: No (history not available) Endocrine: No (history not available) HEENT: No (history not available) Cancer: No (history not available) Psychosocial: No (history not available) Family Medical History Unable to obtain history Visual Acuity : Eye Location: Left Physical Exam Vital Signs Vital Signs - First Documented 03/21/21 21:26 Temp 36.7 Pulse 80 Resp 18 B/P (MAP) 141/92 (108) Pulse Ox 100 O2 Delivery Room Air Height, Weight, BMI Height: '" Weight: lbs. oz. kg; 17.00 BMI Method: General Appearance: WD/WN, no apparent distress Eyes: right eye normal inspection; left eye conjunctival inflammation, left eye lid inflammation; bilateral eye PERRL, bilateral eye EOMI Nose: normal inspection; No discharge Mouth/Throat: normal mouth inspection Neck: full range of motion, normal inspection Cardiovascular: regular rate, rhythm, no murmur Respiratory: lungs clear, normal breath sounds Neurologic/Psychiatric: no motor/sensory deficits, alert, normal mood/affect, oriented x 3 Skin: normal color, warm/dry Procedures/Interventions Eye : Location: left eye Anesthesia (gtts): Tetracaine (1gtt) Progress/Procedure Conclusion Instilled 1 gtt tetracaine into left eye and applied fluorescein. Inspected eye with black light, no corneal abrasions/foreign bodies noted. Progress/Results/Core Measures Results/Orders My Orders Vital Signs/I&O Progress Progress Note : Progress Note Patient examined, she is noted to have some left lower lid irritation of the l ateral canthus. No injuries appreciated on internal eye exam. Mild lateral eye injection. Discussed starting antibiotics, using as directed and having her follow-up with ophthalmology of her choice. Reviewed discharge plan of care and she is agreeable with plan. Departure Impression Primary Impression: Ocular inflammation Disposition: HOME, SELF-CARE Condition: Improved Departure-Patient Inst. Decision time for Depature: 21:57 Referrals: NO,LOCAL PHYSICIAN (PCP) Primary Care Physician Patient Instructions: How to Use Eye Drops Add. Discharge Instructions: Plan: 1. Wash hands prior to instilling eye drops. Place one drop in the bottom eye lid as shown in ER every 4 hours for the first 48 hours. Then use every 6 hours for the next 3 days. 2. Follow up with an eye physician of your choice. 3. Return for any new, concerning, or worsening symptoms. All discharge instructions reviewed with patient and/or family. Voiced underst anding. BECCA ALVES [employer] Mar 21, 2021 21:29
[2021-03-21] MEDS ORDERED: TETRACAINE 0.5% OPHTH SOLN 4 ML BTL (SINGLE DOSE ONLY) OU ONE (21:30)
[2021-03-21] MEDS ORDERED: BSS 15 ML IR ONE (21:30)
[2021-03-21] MEDS ORDERED: FLUORESCEIN (FLUOR-I-STRIPS) 1 MG STRP OU ONE (21:30)
[2021-03-21] MEDS ORDERED: RX-TOBRAMYCIN 0.3% OPHTH (TOBREX) SOLN 5 ML BTL OP STA (21:52)
== END 2021-03-21 22:37 | disposition home or self-care (01) ==
LOC: EDUNIT# 21:01 → ER 21:02
DX: H57.12 Ocular pain, left eye (principal); Z77.22 Contact with and (suspected) exposure to environmental tobacco smoke (acute) (chronic)
CPT/HCPCS: 99283